=== PATIENT | female | born 1960 | race Caucasian/White ===

== ENCOUNTER 2017-11-12 10:18 | Inpatient (IN) | payer OTHER ==
[2017-11-12] MEDS ORDERED: Ondansetron ODT 4 MG TAB PO PRN (11:43)
[2017-11-12] MEDS ORDERED: Senokot 8.6 MG TAB PO PRN (11:43)
--- NOTE | 2017-11-12 12:15 | PDOC.FPRHP ---
- History of Present Illness Chief Complaint: fatigue, weight loss History of Present Illness: 57 yo female with pmhx of GERD and anemia presents with progressive shortness of breath, 40 pound weight loss, and fatigue. She states that over the past year she has felt run down and has noticed that she has become more and more tired as well as shortness of breath with activities. She notes that she thought she was just depressed and stressed because one year ago yesterday she lost her to stage 4 lung cancer with shahab to his brain. She states that she also has pain in her mouth. It feels like burning on her tongue and cheeks. She thinks she has lesions/sores in her mouth and has had these sx for months. It hurts to swallow food. It is painful and overall difficult (sticking ) to swallow solids especially but lately she has had difficulty with liquids as well. She was seen by Dr. Currie on Saturday who ordered a cbc, which showed a hb of 6.0, which was rechecked this morning and is now 5.8. She also ordered serum iron level which was low and vit b12 and folate which were both elevated. 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 She was directly admitted to [facility] after her repeat CBC showed a level of 5.8. She denies bloody stools. She endorses a chronic hx of constipation, denies n/v/d. Endorses a hx of esophageal strictures, gastric bypass surgery, and burning in her esophagus especially at night. She has a 20 pack year smoking hx, family hx of cardiac disease in her father, CML in her brother, and HCC in her mom. - Allergies/Adverse Reactions Allergies Allergy/AdvReac Type Severity Reaction Status Date / Time Tetracyclines Allergy Verified 11/12/17 11:16 - Home Medications Medication Instructions Recorded Confirmed Type Pantoprazole Sodium 40 mg PO DAILY 11/12/17 11/12/17 History Triamcinolone Acetonide 1 applic PO Q6HR 11/12/17 11/12/17 History [Triamcinolone Acet 0.1% Dental Paste] Comments: Pantoprazole 40mg daily Triamcinolone paste oral q6hrs - History PMHx:GERD, PTSD, Anemia, Hx of nephrolithiasis, Lupus? (non on medications) PSHx: Gastric bypass surgery, bladder surgery, cholecystectomy, appendectomy, hysterectomy, orthoscopic knee surgery, tonsillectomy FHx:Father-ID in 50s, cirrhosis, Mother-HCC @ 51 yrs old, Brother CML @ 45 years old Social:20 pack year smoking hx, denies alcohol use or drug use - Review of Systems General: reports: weight/appetite/sleep changes (40 lbs weight loss over passed year), fatigue, other (chronic stress, decreased PO intake, sores in mouth). denies: fever/chills Eyes: denies: eye pain, vision changes ENT: reports: other (dysphagia and odynophagia with solids initially, lately with liquids as well). denies: nasal congestion, rhinorrhea Respiratory: reports: shortness of breath, exercise intolerance. denies: cough , congestion Cardiovascular: denies: chest pain, palpitation, edema, paroxysmal nocturnal dyspnea, orthopnea Gastrointestinal: reports: constipation. denies: nausea, vomiting, diarrhea, abdominal pain Genitourinary: denies: incontinence, dysuria Skin: denies: rashes, lesions Musculoskeletal: denies: pain, tenderness, stiffness Neurological: denies: numbness, syncope Psychological: denies: anxiety, depression - Vital signs BP: 140/78 HR: 88 RR: 16 Tmax: 98.9 Pox: 100% on RA Wt: 54kg - Physical Exam Constitutional: NAD, awake, alert and oriented, well developed HEENT: normocephalic and atraumatic, PERRLA, EOMI, no scleral icterus, TM's clear and intact, grossly normal hearing, normal nasal mucosa, MMM, oropharynx clear (no signs of lesions), other (conjunctival pallor) Neck: supple, trachea midline, no LAD, no JVD, no thyromegaly Chest: no-tender to palpation Heart: RRR, normal S1/S2, no murmurs/rubs/gallops, no edema Lungs: CTAB, no respiratory distress, good air movement, no wheezing, no retractions Abdomen: soft, non-tender, bowel sounds present Musculoskeletal: normal structure, normal tone Neurological: no focal deficit, normal sensation Skin: no rash/lesions, good turgor, capillary refill <2 seconds, no jaundice Heme/Lymphatic: no unusual bruising or bleeding, no purpura, no petechia Psychiatric: normal mood and affect, intact recent and remote memory FMR H&P: Results - Labs Result Diagrams: 11/13/17 04:22 11/13/17 04:22 FMR H&P: A/P - Problem List (1) Symptomatic anemia Current Visit: Yes Status: Acute Code(s): D64.9 - ANEMIA, UNSPECIFIED (2) Dysphagia Current Visit: Yes Status: Acute Code(s): R13.10 - DYSPHAGIA, UNSPECIFIED (3) ELI (acute kidney injury) Current Visit: Yes Status: Acute Code(s): N17.9 - ACUTE KIDNEY FAILURE, UNSPECIFIED (4) Odynophagia Current Visit: Yes Status: Acute Code(s): R13.10 - DYSPHAGIA, UNSPECIFIED (5) History of esophageal stricture Current Visit: Yes Status: Acute Code(s): Z87.19 - PERSONAL HISTORY OF OTHER DISEASES OF THE DIGESTIVE SYSTEM (6) GERD (gastroesophageal reflux disease) Current Visit: Yes Status: Acute Code(s): K21.9 - GASTRO-ESOPHAGEAL REFLUX DISEASE WITHOUT ESOPHAGITIS (7) Hx of gastric bypass Current Visit: Yes Status: Acute Code(s): Z98.84 - BARIATRIC SURGERY STATUS (8) Family history of heart attack Current Visit: Yes Status: Acute Code(s): Z82.49 - FAMILY HX OF ISCHEM HEART DIS AND OTH DIS OF THE [facility] SYS (9) Tobacco abuse Current Visit: Yes Status: Acute Code(s): Z72.0 - TOBACCO USE - Plan 57 yo f with pmhx of anemia presents with fatigue, 40 pound weight loss, dizziness, sob, dysphagia, and odynophagia with solids, and now liquids, found to have a hb of 5.8 admitted for symptomatic anemia. 1.)Symptomatic anemia- -Pt is symptomatic from her anemie with dizziness and shortness of breath. States she has iron deficient anemia, not taking iron as it makes her sick. She also has a hx of gastric bypass surgery making her at risk for poor absorption. -She was admitted to inpatient tele. Type and cross was ordered and pt was ordered 2U prbcs. We will recheck with an H/H this evening at 1999. We plan to recheck cbc and bmp in the am as well. Serum iron was ordered outpatient and was low. We ordered a TIBC and ferritin as well. Vit B12 and folate were ordered outpatient and were elevated. RBCfolate was ordered here. Pt may need an iron transfusion. Check FOBT. 2.)Dysphagia and Odynophagia- -Pt states she has a hx of difficulty swallowing with solids that is progressive and now liquids. She has weight loss, 20 pack year smoking hx, and longstanding hx of uncontrolled and unmedicated GERD. She states that she also has a known hx of esophageal strictures. GI was consulted and we will follow up on their recommendations. Pt will likely need an EGD and may need a colonoscopy. However, no complaint at this time of bloody stools or hematemesis. She actually complains of constipation in stead. 3.)ELI- Pt had a normal Cr and BUN on labs done on Saturday and presents with an elevated BUN an Cr. Ratio>15. Will start NS @ 100ml/hr for her and Recheck BMP in am. 3.)GERD- -Pt has red flag sx of wt loss, iron deficient anemia, dysphagia, odynophagia. She has risk factors for Barretts esophagus being >50 years, white, nighttime refulx, and tobacco abuse. GI consulted and likely EGD in the am if H/H stable. Will make pt NPO at midnight. Pantoprazole 40mg daily. 4.)Constipation-will start doc and senna for pt. 5.)Stomatitis- Pt complains of oral ulcers and burning with eating. No obvious ulcers seen. HSV -1 and HSV-2 antibodies positive. No signs of herpetic lesions. Will continue triamcinolone oral paste. 6.)Hx of esophageal strictures- -GI consult, follow-up on recs 7.)Hx of tobacco abuse-nicotine patch, [place] on cessation 8.)Lupus-pt reports hx but is not on any medications. FMR H&P: Upper Level - Pertinent history 57 year old white female presents for fatigue and dyspnea. She reports this has been ongoing for about a year. She has also had exertional dyspnea, odynophagia, and mouth sores that have been present for a while. She also reports 40 lb weight loss in the last year. She also has reports frequent congestion. She reported these concerns to her PCP (whom she had not seen since January) on Saturday. Her hemoglobin Saturday morning. PM Patient is a poor historian. Reports longstanding history of anemia, multiple esophageal strictures, GERD, and having been told she had lupus once PSH Gastric bypass, EGD with stricture dilation, tonsillectomy, appendectomy, cholecystectomy, hysterectomy, knee arthroscopy - Pertinent findings Vital Signs Temp 98.9 RR 16 HR 88 BP 140/78 O2 sats 100% on Room Air Weight 54 kg Physical Exam General: NAD. AAOx4. Eyes: EOMI, PERRL, nonicteric. Conjunctiva pale ENT: MMM, oropharynx clear. Mucosa pale CV: RRR, no m/r/g. Pulses full and equal in all 4 extremities Resp: CTAB. No wheezing, rales, or rhonchi. Nonlabored NT: NT, ND, no guarding or rebound Ext: No clubbing, cyanosis, or edema. Equal movements bilaterally Skin: No rash or ulcer. No palpable lesions Neuro: CN II-XII intact. No focal deficits Psych: Mood and affect appropriate. Judgment and insight intact - Plan Date/Time: 11/12/17 1215 IFrankie DO, have evaluated this patient and agree with findings/plan as outlined by pharmacy intern resident. Pertinent changes/additions are listed here. A/P 57 yo white female presents: 1) Symptomatic microcytic anemia - Admit to telemetry. Check FOBT. Consult GI. Repeat CBC in the morning. B12, iron studies checked outpatient. Check folate. Transfuse 2 units 2) Unexplained weight loss - 40 lbs in the last year. Consult GI 3) Questionable history of lupus - Likely appropriate for outpatient workup 4) Constipation - Colace, Senokot 5) Code Status - Full Attending Addendum - Attending Addendum Date/Time: 11/12/17 1133 I personally evaluated the patient and discussed the management with Dr. Dangelo. I agree with the History, Examination, Assessment and Plan documented above with any addition or exceptions noted below. The patient is direct admitted for symptomatic anemia, eli, stomatitis, dysphagia. She will get 2 units prbc's and trend hb. Consult GI for EGD/ Colonoscopy. Start IV fluids.
[2017-11-12] MEDS: Sodium Chloride 0.9% 1,000 ML IV SCH ×2 (12:46→21:54)
[2017-11-12] MEDS: Nicotine 14 MG PATCH TD SCH (12:46)
[2017-11-12 13:01] LABS: Magnesium 2.2 mg/dL (1.6-2.6); Phosphorus 4.1 mg/dL (2.3-4.7)
[2017-11-12 13:03] LABS: ALT (SGPT) 14 U/L (8-55); AST (SGOT) 19 U/L (5-34); Albumin 4.1 g/dL (3.5-5.0); Alkaline Phosphatase 101 U/L (40-150); Anion Gap 12 mmol/L (10-20); BUN (Urea Nitrogen) 22 mg/dL (9.8-20.1); Bilirubin, Total 0.7 mg/dL (0.2-1.2); Calc. Creatinine Clearance 47 mL/min (70-130); Carbon Dioxide 23 mmol/L (22-29); Chloride 108 mmol/L (98-107); Estimated GFR-MDRD 49; Globulin 2.2 g/dL (2.4-3.5); Glucose 109 mg/dL (70-105); Potassium 3.8 mmol/L (3.5-5.1); Protein, Total 6.3 g/dL (6.0-8.3); Sodium 139 mmol/L (136-145)
--- NOTE | 2017-11-12 13:42 | RAD ---
PA AND LATERAL VIEWS CHEST: HISTORY: Shortness of breath. FINDINGS: Comparison is made to exam of 07/29/15. The heart size is normal. The aorta is tortuous. The lungs are expanded without focal areas of cons olidation, pneumothorax, pneumothorax, or pleural effusions. There are postop changes in the left ab domen. There are mild degenerative changes in the spine. IMPRESSION: No acute process. POS: [facility]
[2017-11-12 13:59] LABS: Ferritin Less than 2.00 ng/mL (10-291); Thyroid Stimulating Hormone 0.4873 uIU/mL (0.35-4.94)
[2017-11-12 14:01] LABS: HIV (1/2) Antibody/Antigen Non-Reactive (NonReactive); HIV 1/2 INDEX 0.13 S/CO (<1.00)
[2017-11-12 14:16] LABS: Reticulocyte Count 1.6 % (0.5-1.5)
[2017-11-12 14:18] LABS: Hemoglobin 5.6 g/dL (12.0-16.0); Mean Corpuscular HGB CONC 29.3 g/dL (32.0-36.0); Mean Corpuscular Hemoglobin 16.1 pg (27.0-31.0); Mean Platelet Volume 4.9 fL (7.4-10.4); Platelet Count 294 thou/uL (130-400); RBC Distribution Width 20.4 % (11.5-14.5); Red Blood Cell (RBC) Count 3.48 mill/uL (4.20-5.40)
[2017-11-12 14:42] LABS: Anisocytosis MODERATE=16-30 cells (100X) (0-5/hpf); Band 1 % (5-11); Elliptocytes SLIGHT = 2-5 cells (100X) (0-1/hpf); Hypochromia MODERATE=16-30 cells (100X) (0-5/hpf); Large Platelets SLIGHT; Lymphocytes 32 % (21-51); MDiff Complete? YES; Microcytosis MODERATE=15-30 cells (100X) (0-5/hpf); Monocytes 2 % (0-10); Neutrophil 65 % (42-75); Ovalocytes SLIGHT = 2-5 cells (100X) (0-1/hpf); PLT Morphology Comment Appears Adequate; Poikilocytosis SLIGHT = 6-15 cells (100X) (0-5/hpf); Polychromasia MODERATE = 3-4 cells (100X) (0-2/hpf); Reflex for Review?? YES; Schistocytes SLIGHT = 2-5 cells (100X) (0-1/hpf); Target Cells SLIGHT = 2-5 cells (100X) (0-1/hpf); Tear Drops SLIGHT = 2-5 cells (100X) (0-1/hpf)
[2017-11-12 16:07] LABS: Amphetamine Detected (NotDetected); Barbiturates Screen Not Detected (NotDetected); Benzodiazepine Screen Not Detected (NotDetected); Cocaine Metabolite Screen Not Detected (NotDetected); Medtox Control Line Valid? VALID (VALID); Medtox Reader # READER 4; Methadone Not Detected (NotDetected); Methamphetamine Detected (NotDetected); Opiate Screen Not Detected (NotDetected); Oxycodone Screen Not Detected (NotDetected); Phencyclidine (PCP) Not Detected (NotDetected); THC/Cannabinoid Screen Not Detected (NotDetected); Tricyclic Screen Not Detected (NotDetected)
[2017-11-12] MEDS ORDERED: GoLYTELY 4,000 ml Bottle PO SCH (16:30)
--- NOTE | 2017-11-12 17:26 | CON ---
DATE OF CONSULTATION: 11/12/2017 GI INPATIENT CONSULTATION NOTE REQUESTING PHYSICIAN: Sandra Dangelo MD REASON FOR CONSULTATION: Iron deficiency anemia and dysphagia. HISTORY OF PRESENT ILLNESS: Wild Serrano is a 57-year-old woman who was admitted to the [facility] today with severe symptomatic iron deficiency anemia. She has a past medical history of Naheed-en- Y gastric bypass surgery about 12 years ago and relates that she had severe reflux and esophageal str icture dilation in the immediate postoperative period, but had done well since then until the past ye ar. She also carries a diagnosis of lupus, which is currently untreated. She saw my GI colleague, Kika Colon in the distant past back in 2001 and had an EGD at that time showing nonerosive gastrit is and duodenitis and a colonoscopy which was normal. This was before her Naheed-en-Y gastric bypass s urgery. She says she takes a multivitamin, but does not take any iron supplementation. She relates that for about the past year, she has had a slow decline with progressive shortness of breath and fat igue. She had a 40-pound weight loss. She has been depressed over the past year since the unfortuna te of her . She has also noticed intermittent sores in her mouth and also sensation of dysphagia and odynophagia feeling as if food hangs up in the bottom of the chest, particularly solid foods. She reports that she has been getting headaches and so she has been starting to take a lot of Advil. She also continues to smoke. There has been no melena or hematochezia, no hematemesis, no o vert bleeding from anywhere. Her bowel habits have tended toward constipation a bit recently. She t akes no medications aside from oral Protonix, which she was just started on few weeks ago. She was s een by her primary care physician and was found to be severely anemic and so was sent to the hospital for transfusion and further evaluation. Her hemoglobin is 5.6 with an MCV of only 55. Her ferritin is undetectable at less than 2. She is currently getting 2 units RBC transfusion. She says her sym ptoms are unchanged. REVIEW OF SYSTEMS: Full review of systems including constitutional, head, eyes, ears, nose, throat, GI, , cardiovascular, respiratory, musculoskeletal, and neurologic systems is negative except as no vernon in the HPI. PAST MEDICAL HISTORY: 1. Naheed-en-Y gastric bypass 12 years ago. 2. Esophageal stricture dilated 12 years ago. 3. Normal colonoscopy 2001. 4. Lupus. 5. Nephrolithiasis. 6. Post-traumatic stress disorder. 7. Gastroesophageal reflux disease. 8. Cholecystectomy. 9. Appendectomy. 10. Hysterectomy. ALLERGIES: TETRACYCLINE. OUTPATIENT MEDICATION: Protonix 40 mg daily. Patient says she started this only a few weeks ago. SOCIAL HISTORY: She has a [id number] history of smoking and continues to smoke. No alcohol or olayinka g abuse. FAMILY HISTORY: Her mother had HCC. Her brother had CML. PHYSICAL EXAMINATION: VITAL SIGNS: Temperature 98.1, pulse 87, blood pressure 141/94, 100% oxygen saturation on room air. GENERAL: A 57-year-old woman sitting up in bed comfortably in no distress. MENTAL: Alert and fully oriented, pleasant, conversational. SKIN: She is pale, no jaundice, no rashes were palpable. EYES: No scleral icterus. Extraocular movements intact. ENT: Mucous membranes moist, no oral lesions. LYMPH: No submandibular or supraclavicular lymphadenopathy. THYROID: Nontender to palpation. HEART: Regular rate and rhythm. LUNGS: Clear to auscultation bilaterally. ABDOMEN: Flat, bowel sounds present, soft, some tenderness to palpation in the epigastrium, but no g uarding or rebound tenderness. EXTREMITIES: No peripheral edema. VESSELS: Radial pulses 2+ bilaterally. NEUROLOGICAL: Cranial nerves II-XII intact bilaterally. No focal deficits. LABORATORY STUDIES: Hemoglobin 5.6, MCV 55, WBC 7.0, platelets 294. Ferritin less than 2, TIBC 456. Vitamin B12 greater than 2000. Reticulocyte count 1.6. TSH 0.48. LFTs all normal. HIV negative. BUN 22, creatinine 1.14. IMAGING DATA: Chest x-ray shows no acute processes. ASSESSMENT AND PLAN: 1. Iron deficiency anemia, severe, symptomatic. 2. Dysphagia. 3. Abnormal weight loss. 4. History of Naheed-en-Y gastric bypass 12 years ago. 5. Chronic ongoing tobacco abuse. 6. Chronic nonsteroidal anti-inflammatory drug use. The patient's presentation seems most consisten t with upper GI mucosal pathology such as esophageal or gastric lesion, possibly anastomotic ulcer. She is certainly at risk for this given her chronic nonsteroidal anti-inflammatory drug use and her o ngoing tobacco abuse in the context of Naheed-en-Y gastric bypass. Given the severity of her anemia an d weight loss, consider lower GI occult bleeding lesion as well. I think the best course of action w ould be to prep her this evening for EGD and colonoscopy tomorrow. The patient is agreeable to this. She is currently getting RBC transfusion and is hemodynamically stable. Further recommendations fo llowing EGD and colonoscopy. Thank you for the consultation. Please call with questions or concerns.
[2017-11-12] MEDS ORDERED: Famotidine 20 MG TAB PO SCH (21:00)
[2017-11-12] MEDS: Docusate 100 MG CAP PO SCH (21:38)
[2017-11-12 23:04] LABS: Hemoglobin 7.7 g/dL (12.0-16.0); Mean Corpuscular HGB CONC 30.3 g/dL (32.0-36.0); Mean Corpuscular Hemoglobin 19.1 pg (27.0-31.0); Mean Corpuscular Volume 63.2 fl (81.0-99.0); Mean Platelet Volume 4.6 fL (7.4-10.4); Platelet Count 256 thou/uL (130-400); RBC Distribution Width 28.5 % (11.5-14.5); Red Blood Cell (RBC) Count 4.01 mill/uL (4.20-5.40); White Blood Cell (WBC) Count 5.6 thou/uL (4.8-10.8)
[2017-11-13 05:33] LABS: #Basophils 0.1 thou/uL (0.0-0.2); #Eosinphils 0.1 thou/uL (0.0-0.7); #Lymphocytes 2.2 thou/uL (1.20-3.40); #Monocytes 0.5 thou/uL (0.11-0.59); #Neutrophils 2.7 thou/uL (1.40-6.50); %Eosinophils 1.6 % (0.0-10.0); %Lymphocytes 39.3 % (21.0-51.0); %Monocytes 9.1 % (0.0-10.0); Mean Corpuscular HGB CONC 30.2 g/dL (32.0-36.0); Mean Platelet Volume 5.2 fL (7.4-10.4); Platelet Count 285 thou/uL (130-400); RBC Distribution Width 28.5 % (11.5-14.5); Red Blood Cell (RBC) Count 4.22 mill/uL (4.20-5.40); White Blood Cell (WBC) Count 5.5 thou/uL (4.8-10.8)
[2017-11-13 05:48] LABS: Anion Gap 12 mmol/L (10-20); BUN (Urea Nitrogen) 11 mg/dL (9.8-20.1); Calc. Creatinine Clearance 71 mL/min (70-130); Carbon Dioxide 25 mmol/L (22-29); Chloride 108 mmol/L (98-107); Estimated GFR-MDRD 79; Glucose 91 mg/dL (70-105); Potassium 3.8 mmol/L (3.5-5.1); Sodium 141 mmol/L (136-145)
[2017-11-13 07:58] VITALS: BMI 21.2
[2017-11-13] MEDS: Docusate 100 MG CAP PO SCH ×2 (08:29→20:23)
[2017-11-13] MEDS: Nicotine 14 MG PATCH TD SCH (11:47)
[2017-11-13] MEDS: Sodium Chloride 0.9% 1,000 ML IV SCH (11:47)
--- NOTE | 2017-11-13 11:54 | PDOC.FM ---
- Subjective Subjective: No acute events overnight. Denies use of meth despite +UDS. States her oral pain with swallowing is improved. - Objective MAR Reviewed: Yes Vital Signs & Weight: Vital Signs (12 hours) Temp Pulse Resp BP Pulse Ox 11/13/17 11:41 98.5 F 75 15 152/95 H 98 11/13/17 07:08 98.2 F 67 15 156/97 H 97 11/13/17 05:58 97.1 F L 72 18 164/97 H 97 Weight Admit Weight 54.159 kg Weight 56.245 kg I&O: 11/12/17 11/13/17 11/14/17 06:59 06:59 06:59 Intake Total 3500 Output Total 1100 Balance 2400 Result Diagrams: 11/13/17 04:22 11/13/17 04:22 <Sandra Dangelo - Last Filed: 11/13/17 11:54> - Objective Vital Signs & Weight: Vital Signs (12 hours) Temp Pulse Resp BP BP Pulse Ox 11/13/17 20:22 75 180/103 H 11/13/17 19:51 97.6 F 75 16 180/103 H 100 11/13/17 18:41 98.1 F 78 16 168/103 H 97 11/13/17 11:41 98.5 F 75 15 152/95 H 98 Weight Admit Weight 54.159 kg Weight 56.245 kg I&O: 11/12/17 11/13/17 11/14/17 06:59 06:59 06:59 Intake Total 3500 1560 Output Total 1100 1700 Balance 2400 -140 Result Diagrams: 11/13/17 04:22 11/13/17 04:22 <Sera Currie - Last Filed: 11/13/17 20:42> Phys Exam - Physical Examination Constitutional: NAD HEENT: PERRLA, moist MMs Respiratory: no wheezing, no rales, no rhonchi, clear to auscultation bilateral Cardiovascular: RRR, no significant murmur Gastrointestinal: soft, non-tender, no distention Musculoskeletal: no edema, pulses present Neurological: non-focal, normal sensation Psychiatric: normal affect, A&O x 3 Skin: no rash, normal turgor <Sandra Dangelo - Last Filed: 11/13/17 11:54> Dx/Plan (1) Symptomatic anemia Code(s): D64.9 - ANEMIA, UNSPECIFIED Status: Acute (2) Dysphagia Code(s): R13.10 - DYSPHAGIA, UNSPECIFIED Status: Acute (3) ELI (acute kidney injury) Code(s): N17.9 - ACUTE KIDNEY FAILURE, UNSPECIFIED Status: Acute (4) Odynophagia Code(s): R13.10 - DYSPHAGIA, UNSPECIFIED Status: Acute (5) History of esophageal stricture Code(s): Z87.19 - PERSONAL HISTORY OF OTHER DISEASES OF THE DIGESTIVE SYSTEM Status: Acute (6) GERD (gastroesophageal reflux disease) Code(s): K21.9 - GASTRO-ESOPHAGEAL REFLUX DISEASE WITHOUT ESOPHAGITIS Status: Acute (7) Hx of gastric bypass Code(s): Z98.84 - BARIATRIC SURGERY STATUS Status: Acute (8) Family history of heart attack Code(s): Z82.49 - FAMILY HX OF ISCHEM HEART DIS AND OTH DIS OF THE [facility] SYS Status: Acute (9) Tobacco abuse Code(s): Z72.0 - TOBACCO USE Status: Acute - Plan Plan: 57 yo f with pmhx of anemia presents with fatigue, 40 pound weight loss, dizziness, sob, dysphagia, and odynophagia with solids, and now liquids, found to have a hb of 5.8 admitted for symptomatic anemia. 1.)Symptomatic anemia- -Pt is symptomatic from her anemie with dizziness and shortness of breath. States she has iron deficient anemia, not taking iron as it makes her sick. She also has a hx of gastric bypass surgery making her at risk for poor absorption. -Repeat H/H was 7.7, and now 8.0 this morning. -Serum iron was ordered outpatient and was low. We ordered a TIBC and ferritin as well. -Vit B12 and folate were ordered outpatient and were elevated. RBCfolate was ordered here. -Pt may need an iron transfusion. -FOBT pending. -GI consult, who recommend EGD and Colonoscopy; pt was made NPO at midnight 2.)Dysphagia and Odynophagia- -Pt states she has a hx of difficulty swallowing with solids that is progressive and now liquids. -She has weight loss, 20 pack year smoking hx, and longstanding hx of uncontrolled and unmedicated GERD. -She states that she also has a known hx of esophageal strictures. -GI was consulted and recommend EGD and colonoscopy today. 3.)ELI- -Pt had a normal Cr and BUN on labs done on Saturday and presents with an elevated BUN an Cr. Ratio>15. Resolved this am. -Will dc NS today. 4.)GERD- -Pt has red flag sx of wt loss, iron deficient anemia, dysphagia, odynophagia. She has risk factors for Barretts esophagus being >50 years, white, nighttime refulx, and tobacco abuse. -GI consulted and EGD, colonoscopy today, made NPO at midnight, continue Pantoprazole 40mg daily. 5.)Constipation-will start doc and senna for pt. 6.)Stomatitis- Pt complains of oral ulcers and burning with eating. No obvious ulcers seen. HSV -1 and HSV-2 antibodies positive. No signs of herpetic lesions. Will continue triamcinolone oral paste. 7.)Hx of esophageal strictures- -GI consult, follow-up on recs 8.)Hx of tobacco abuse-nicotine patch, [place] on cessation 9.)Lupus-pt reports hx but is not on any medications. 10.) Meth abuse-denied use Dispo: pending results of EGD and colonoscopy. <Sandra Dangelo - Last Filed: 11/13/17 11:54> (1) Symptomatic anemia Code(s): D64.9 - ANEMIA, UNSPECIFIED Status: Acute (2) Dysphagia Code(s): R13.10 - DYSPHAGIA, UNSPECIFIED Status: Acute (3) ELI (acute kidney injury) Code(s): N17.9 - ACUTE KIDNEY FAILURE, UNSPECIFIED Status: Acute (4) Odynophagia Code(s): R13.10 - DYSPHAGIA, UNSPECIFIED Status: Acute (5) History of esophageal stricture Code(s): Z87.19 - PERSONAL HISTORY OF OTHER DISEASES OF THE DIGESTIVE SYSTEM Status: Acute (6) GERD (gastroesophageal reflux disease) Code(s): K21.9 - GASTRO-ESOPHAGEAL REFLUX DISEASE WITHOUT ESOPHAGITIS Status: Acute (7) Hx of gastric bypass Code(s): Z98.84 - BARIATRIC SURGERY STATUS Status: Acute (8) Family history of heart attack Code(s): Z82.49 - FAMILY HX OF ISCHEM HEART DIS AND OTH DIS OF THE [facility] SYS Status: Acute (9) Tobacco abuse Code(s): Z72.0 - TOBACCO USE Status: Acute <Sera uCrrie - Last Filed: 11/13/17 20:42> Attending Addendum - Attending Addendum Date/Time: 11/13/172040 I personally evaluated the patient and discussed the management with Dr. Dangelo. I agree with the History, Examination, Assessment and Plan documented above with any addition or exceptions noted below. The patient's hemoglobin is improved after transfusion with 2 units PRBC's. The patient will have egd and colonoscopy today. UDS positive for methamphetamines but she denies usage. <Sera Currie - Last Filed: 11/13/17 20:42>
[2017-11-13 14:23] LABS: Folate,Hemolysate 370.7 ng/mL (Not Estab.); Hematocrit 18.9 % (34.0-46.6); RBC Folate Test Component 1961 ng/mL (>498)
[2017-11-13] MEDS ORDERED: PROPOFOL 200 MG/20 ML VIAL ONE (14:49)
[2017-11-13] MEDS ORDERED: Promethazine HCl 25 MG/ML VIAL IM PRN (17:36)
[2017-11-13] MEDS ORDERED: Promethazine HCl 25 MG/ML VIAL SLOW IVP PRN (17:36)
[2017-11-13] MEDS ORDERED: Ondansetron HCl/PF 4 MG/2 ML Vial IVP PRN (17:36)
[2017-11-13] MEDS ORDERED: Labetalol HCl 100 MG/20 ML VIAL SLOW IVP PRN (19:05)
--- NOTE | 2017-11-13 19:12 | OP ---
PREOPERATIVE DIAGNOSIS: Iron deficiency anemia. PROCEDURE IN DETAIL: After informed consent was obtained, the patient was placed in the left lateral decubitus position. Anesthesia was administered per the Anesthesia Department. Forward-viewing end oscope was inserted into the esophagus under direct visualization with ease and passed to the jejunum with ease. The jejunum was normal. There was a previous gastric bypass and then the area of the an astomosis was a large ulcer. This ulcer was biopsied. No visible vessel or active bleeding was seen . Gastric pouch was otherwise normal. The esophagus showed grade C reflux esophagitis. ASSESSMENT: 1. Anastomotic ulcer -- status post biopsy. 2. Grade C reflux esophagitis. 3. Gastric bypass. RECOMMENDATIONS: 1. PPI. 2. Iron. 3. Proceed with colonoscopy. PROCEDURE: After informed consent was obtained, the patient was placed in the left lateral decubitus position. Anesthesia was administered per the Anesthesia Department. Forward-viewing endoscope was inserted into the rectum after perianal inspection and rectal exam were normal, passed to the cecum with ease. The cecum, ileocecal valve, and appendiceal orifice were normal. The prep was excellent. The ascending, transverse, descending, sigmoid, and rectum were normal. Retroflexion in the rectum was normal. ASSESSMENT: Normal colonoscopy. RECOMMENDATIONS: Repeat colonoscopy in 10 years.
[2017-11-14] MEDS: Sodium Chloride 0.9% 1,000 ML IV SCH ×3 (04:09→22:24)
[2017-11-14 04:45] LABS: Anion Gap 10 mmol/L (10-20); BUN (Urea Nitrogen) 9 mg/dL (9.8-20.1); Calc. Creatinine Clearance 72 mL/min (70-130); Calcium 8.9 mg/dL (7.8-10.44); Carbon Dioxide 25 mmol/L (22-29); Chloride 109 mmol/L (98-107); Estimated GFR-MDRD 78; Glucose 85 mg/dL (70-105); Potassium 3.9 mmol/L (3.5-5.1); Sodium 140 mmol/L (136-145)
[2017-11-14 05:21] LABS: #Eosinphils 0.1 thou/uL (0.0-0.7); #Lymphocytes 2.1 thou/uL (1.20-3.40); #Monocytes 0.6 thou/uL (0.11-0.59); #Neutrophils 4.2 thou/uL (1.40-6.50); %Basophils 0.7 % (0.0-1.0); %Eosinophils 1.5 % (0.0-10.0); %Lymphocytes 29.6 % (21.0-51.0); %Neutrophils 60.4 % (42.0-75.0); Anisocytosis MODERATE=16-30 cells (100X) (0-5/hpf); Elliptocytes SLIGHT = 2-5 cells (100X) (0-1/hpf); Hemoglobin 7.8 g/dL (12.0-16.0); MDiff Complete? YES; Mean Corpuscular HGB CONC 30.5 g/dL (32.0-36.0); Mean Corpuscular Hemoglobin 19.2 pg (27.0-31.0); Mean Corpuscular Volume 62.9 fl (81.0-99.0); Platelet Count 263 thou/uL (130-400); Poikilocytosis SLIGHT = 6-15 cells (100X) (0-5/hpf); RBC Distribution Width 28.8 % (11.5-14.5); Red Blood Cell (RBC) Count 4.05 mill/uL (4.20-5.40)
--- NOTE | 2017-11-14 06:55 | PDOC.FM ---
- Subjective Subjective: No acute events overnight. Denies complaints this morning. States that Gi took an esophageal ulcer. Colonoscopy was normal. - Objective MAR Reviewed: Yes Vital Signs & Weight: Vital Signs (12 hours) Temp Pulse Resp BP BP BP Pulse Ox 11/14/17 04:00 98.7 F 77 14 163/95 H 98 11/14/17 00:00 98.4 F 75 15 162/90 H 98 11/13/17 20:22 75 180/103 H 11/13/17 20:08 97.6 F 75 16 100 11/13/17 19:51 97.6 F 75 16 180/103 H 100 Weight Admit Weight 54.159 kg Weight 56.699 kg I&O: 11/12/17 11/13/17 11/14/17 06:59 06:59 06:59 Intake Total 3500 1800 Output Total 1100 1700 Balance 2400 100 Result Diagrams: 11/14/17 03:29 11/14/17 03:29 <Sandra Dangelo - Last Filed: 11/14/17 09:25> - Objective Vital Signs & Weight: Vital Signs (12 hours) Temp Pulse Resp BP Pulse Ox 11/14/17 19:23 98.1 F 83 14 171/92 H 97 Weight Admit Weight 54.159 kg Weight 56.699 kg I&O: 11/13/17 11/14/17 11/15/17 06:59 06:59 06:59 Intake Total 3500 1800 Output Total 1100 1700 Balance 2400 100 Result Diagrams: 11/14/17 03:29 11/14/17 03:29 <Sera Currie - Last Filed: 11/14/17 19:41> Phys Exam - Physical Examination Constitutional: NAD HEENT: PERRLA, moist MMs Neck: no nodes, no JVD Respiratory: no wheezing, no rales, clear to auscultation bilateral Cardiovascular: RRR, no significant murmur Gastrointestinal: soft, non-tender, no distention Musculoskeletal: no edema, pulses present Neurological: non-focal, normal sensation Psychiatric: normal affect, A&O x 3 Skin: no rash, normal turgor <Sandra Dangelo - Last Filed: 11/14/17 09:25> Dx/Plan (1) Symptomatic anemia Code(s): D64.9 - ANEMIA, UNSPECIFIED Status: Acute (2) Dysphagia Code(s): R13.10 - DYSPHAGIA, UNSPECIFIED Status: Acute (3) ELI (acute kidney injury) Code(s): N17.9 - ACUTE KIDNEY FAILURE, UNSPECIFIED Status: Acute (4) Odynophagia Code(s): R13.10 - DYSPHAGIA, UNSPECIFIED Status: Acute (5) History of esophageal stricture Code(s): Z87.19 - PERSONAL HISTORY OF OTHER DISEASES OF THE DIGESTIVE SYSTEM Status: Acute (6) GERD (gastroesophageal reflux disease) Code(s): K21.9 - GASTRO-ESOPHAGEAL REFLUX DISEASE WITHOUT ESOPHAGITIS Status: Acute (7) Hx of gastric bypass Code(s): Z98.84 - BARIATRIC SURGERY STATUS Status: Acute (8) Family history of heart attack Code(s): Z82.49 - FAMILY HX OF ISCHEM HEART DIS AND OTH DIS OF THE CIRC SYS Status: Acute (9) Tobacco abuse Code(s): Z72.0 - TOBACCO USE Status: Acute - Plan Plan: 57 yo f with pmhx of anemia presents with fatigue, 40 pound weight loss, dizziness, sob, dysphagia, and odynophagia with solids, and now liquids, found to have a hb of 5.8 admitted for symptomatic anemia. 1.)Symptomatic anemia- -Pt is symptomatic from her anemie with dizziness and shortness of breath. States she has iron deficient anemia, not taking iron as it makes her sick. She also has a hx of gastric bypass surgery making her at risk for poor absorption. -Repeat H/H was 7.7, and now 8.0 this morning. -Serum iron was ordered outpatient and was low. We ordered a TIBC and ferritin as well. -Vit B12 and folate were ordered outpatient and were elevated. RBCfolate was ordered here. -Pt may need an iron transfusion. -FOBT pending. -GI consult, performed EGD and colon. ysterday, colonoscopy wnl. EGD-found esophagitis with an ulcer and took a biopsy. Results pending. -Consider iron tranfusion today. 2.)Dysphagia and Odynophagia- -Pt states she has a hx of difficulty swallowing with solids that is progressive and now liquids. -She has weight loss, 20 pack year smoking hx, and longstanding hx of uncontrolled and unmedicated GERD. -She states that she also has a known hx of esophageal strictures. -EGD-took biopsy of esophageal ulcer 3.)ELI- -Pt had a normal Cr and BUN on labs done on Saturday and presents with an elevated BUN an Cr. Ratio>15. Resolved this am. -Will dc NS today. 4.)GERD- -Pt has red flag sx of wt loss, iron deficient anemia, dysphagia, odynophagia. She has risk factors for Barretts esophagus being >50 years, white, nighttime refulx, and tobacco abuse. -continue Pantoprazole 40mg daily. 5.)Constipation-will start doc and senna for pt. 6.)Stomatitis- Pt complains of oral ulcers and burning with eating. No obvious ulcers seen. HSV -1 and HSV-2 antibodies positive. No signs of herpetic lesions. Will continue triamcinolone oral paste. 7.)Hx of esophageal strictures- -GI consult, follow-up on recs 8.)Hx of tobacco abuse-nicotine patch, [place] on cessation 9.)Lupus-pt reports hx but is not on any medications. 10.) Meth abuse-denied use Dispo: pending results of EGD and colonoscopy. <Sandra Dangelo - Last Filed: 11/14/17 09:25> (1) Symptomatic anemia Code(s): D64.9 - ANEMIA, UNSPECIFIED Status: Acute (2) Dysphagia Code(s): R13.10 - DYSPHAGIA, UNSPECIFIED Status: Acute (3) ELI (acute kidney injury) Code(s): N17.9 - ACUTE KIDNEY FAILURE, UNSPECIFIED Status: Acute (4) Odynophagia Code(s): R13.10 - DYSPHAGIA, UNSPECIFIED Status: Acute (5) History of esophageal stricture Code(s): Z87.19 - PERSONAL HISTORY OF OTHER DISEASES OF THE DIGESTIVE SYSTEM Status: Acute (6) GERD (gastroesophageal reflux disease) Code(s): K21.9 - GASTRO-ESOPHAGEAL REFLUX DISEASE WITHOUT ESOPHAGITIS Status: Acute (7) Hx of gastric bypass Code(s): Z98.84 - BARIATRIC SURGERY STATUS Status: Acute (8) Family history of heart attack Code(s): Z82.49 - FAMILY HX OF ISCHEM HEART DIS AND OTH DIS OF THE CIRC SYS Status: Acute (9) Tobacco abuse Code(s): Z72.0 - TOBACCO USE Status: Acute <Sera Currie - Last Filed: 11/14/17 19:41> Attending Addendum - Attending Addendum Date/Time: 11/14/171939 I personally evaluated the patient and discussed the management with Dr. Dangelo. I agree with the History, Examination, Assessment and Plan documented above with any addition or exceptions noted below. The patient's hemoglobin is stable. Waiting on path results from egd biopsy. Continue PPI. The patient will be given an iron infusion because she is unable to tolerate PO iron. Will try to get pt to eat today. <Sera Currie - Last Filed: 11/14/17 19:41>
[2017-11-14] MEDS: Ferrous Sulfate 325 MG TAB PO SCH ×2 (09:46→19:05)
[2017-11-14] MEDS: Docusate 100 MG CAP PO SCH ×2 (09:48→22:22)
[2017-11-14] MEDS ORDERED: Sodium Ferric Gluconate 250 MG in Sodium Chloride 0.9% 100 ML IVPB SCH (12:15)
[2017-11-14] MEDS: Nicotine 14 MG PATCH TD SCH (13:01)
[2017-11-15 05:21] LABS: Anion Gap 9 mmol/L (10-20); BUN (Urea Nitrogen) 8 mg/dL (9.8-20.1); Calc. Creatinine Clearance 75 mL/min (70-130); Calcium 8.9 mg/dL (7.8-10.44); Carbon Dioxide 26 mmol/L (22-29); Chloride 109 mmol/L (98-107); Estimated GFR-MDRD 80; Glucose 94 mg/dL (70-105); Potassium 4.1 mmol/L (3.5-5.1); Sodium 140 mmol/L (136-145)
[2017-11-15 05:45] LABS: #Basophils 0.1 thou/uL (0.0-0.2); #Eosinphils 0.1 thou/uL (0.0-0.7); #Lymphocytes 2.1 thou/uL (1.20-3.40); #Monocytes 0.6 thou/uL (0.11-0.59); #Neutrophils 3.8 thou/uL (1.40-6.50); %Basophils 0.8 % (0.0-1.0); %Eosinophils 1.5 % (0.0-10.0); %Lymphocytes 31.4 % (21.0-51.0); %Monocytes 9.3 % (0.0-10.0); Hemoglobin 8.1 g/dL (12.0-16.0); Mean Corpuscular HGB CONC 30.1 g/dL (32.0-36.0); Mean Corpuscular Hemoglobin 19.3 pg (27.0-31.0); Mean Corpuscular Volume 64.3 fl (81.0-99.0); Mean Platelet Volume 5.1 fL (7.4-10.4); Platelet Count 262 thou/uL (130-400); RBC Distribution Width 29.2 % (11.5-14.5); Red Blood Cell (RBC) Count 4.17 mill/uL (4.20-5.40); White Blood Cell (WBC) Count 6.7 thou/uL (4.8-10.8)
[2017-11-15 05:46] LABS: Anisocytosis MODERATE=16-30 cells (100X) (0-5/hpf); Elliptocytes SLIGHT = 2-5 cells (100X) (0-1/hpf); Hypochromia MODERATE=16-30 cells (100X) (0-5/hpf); MDiff Complete? YES; Microcytosis MODERATE=15-30 cells (100X) (0-5/hpf); PLT Morphology Comment Appears Adequate; Tear Drops SLIGHT = 2-5 cells (100X) (0-1/hpf)
--- NOTE | 2017-11-15 06:57 | PDOC.FM ---
- Subjective Subjective: Pt says after her iron infusion yesterday she became nauseous and vomited once. She then ate dinner and tolerated it okay. She denies nausea and vomiting this am. Tolerating breakfast when I saw her. - Objective MAR Reviewed: Yes Vital Signs & Weight: Vital Signs (12 hours) Temp Pulse Resp BP BP Pulse Ox 11/15/17 03:40 99.0 F 93 18 158/99 H 97 11/14/17 20:11 98.1 F 83 14 83 L 11/14/17 19:23 98.1 F 83 14 171/92 H 97 Weight Admit Weight 54.159 kg Weight 56.064 kg I&O: 11/13/17 11/14/17 11/15/17 06:59 06:59 06:59 Intake Total 3500 1800 1330 Output Total 1100 1700 Balance 2400 100 1330 Result Diagrams: 11/15/17 04:30 11/15/17 04:30 <Sandra Dangelo - Last Filed: 11/15/17 09:03> - Objective Vital Signs & Weight: Vital Signs (12 hours) Temp Pulse Resp BP BP Pulse Ox 11/15/17 08:37 96.1 F L 72 16 161/94 H 98 11/15/17 08:19 161/94 H 11/15/17 08:00 96.1 F L 72 16 11/15/17 03:40 99.0 F 93 18 158/99 H 97 Weight Admit Weight 54.159 kg Weight 56.064 kg I&O: 11/14/17 11/15/17 11/16/17 06:59 06:59 06:59 Intake Total 1800 1330 Output Total 1700 Balance 100 1330 Result Diagrams: 11/15/17 04:30 11/15/17 04:30 <Sera Currie - Last Filed: 11/15/17 12:45> Phys Exam - Physical Examination Constitutional: NAD HEENT: PERRLA, moist MMs Respiratory: no wheezing, no rales, clear to auscultation bilateral Cardiovascular: RRR, no significant murmur Gastrointestinal: soft, non-tender, no distention, positive bowel sounds Musculoskeletal: no edema, pulses present Neurological: non-focal, normal sensation Psychiatric: normal affect, A&O x 3 Skin: no rash <Sandra Dangelo - Last Filed: 11/15/17 09:03> Dx/Plan (1) Symptomatic anemia Code(s): D64.9 - ANEMIA, UNSPECIFIED Status: Acute (2) Dysphagia Code(s): R13.10 - DYSPHAGIA, UNSPECIFIED Status: Acute (3) ELI (acute kidney injury) Code(s): N17.9 - ACUTE KIDNEY FAILURE, UNSPECIFIED Status: Acute (4) Odynophagia Code(s): R13.10 - DYSPHAGIA, UNSPECIFIED Status: Acute (5) History of esophageal stricture Code(s): Z87.19 - PERSONAL HISTORY OF OTHER DISEASES OF THE DIGESTIVE SYSTEM Status: Acute (6) GERD (gastroesophageal reflux disease) Code(s): K21.9 - GASTRO-ESOPHAGEAL REFLUX DISEASE WITHOUT ESOPHAGITIS Status: Acute (7) Hx of gastric bypass Code(s): Z98.84 - BARIATRIC SURGERY STATUS Status: Acute (8) Family history of heart attack Code(s): Z82.49 - FAMILY HX OF ISCHEM HEART DIS AND OTH DIS OF THE CIRC SYS Status: Acute (9) Tobacco abuse Code(s): Z72.0 - TOBACCO USE Status: Acute - Plan Plan: 57 yo f with pmhx of anemia presents with fatigue, 40 pound weight loss, dizziness, sob, dysphagia, and odynophagia with solids, and now liquids, found to have a hb of 5.8 admitted for symptomatic anemia. 1.)Symptomatic anemia- -Pt is symptomatic from her anemie with dizziness and shortness of breath. States she has iron deficient anemia, not taking iron as it makes her sick. She also has a hx of gastric bypass surgery making her at risk for poor absorption. -Repeat H/H stable at ~8.0 -Serum iron was ordered outpatient and was low. We ordered a TIBC and ferritin as well. Retic count high. -Vit B12 and folate were ordered outpatient and were elevated. RBCfolate was ordered here. -Pt may need an iron transfusion. -FOBT pending. -GI consult, performed EGD and colon. ysterday, colonoscopy wnl. EGD-found esophagitis with an ulcer and took a biopsy. Results pending. -s/p iron infusion yesterday -okay for dc today 2.)Dysphagia and Odynophagia- -Pt states she has a hx of difficulty swallowing with solids that is progressive and now liquids. -She has weight loss, 20 pack year smoking hx, and longstanding hx of uncontrolled and unmedicated GERD. -She states that she also has a known hx of esophageal strictures. -EGD-took biopsy of esophageal ulcer 3.)ELI- -Pt had a normal Cr and BUN on labs done on Saturday and presents with an elevated BUN an Cr. Ratio>15. Resolved this am. -Will dc NS today. 4.)GERD- -Pt has red flag sx of wt loss, iron deficient anemia, dysphagia, odynophagia. She has risk factors for Barretts esophagus being >50 years, white, nighttime refulx, and tobacco abuse. -continue Pantoprazole 40mg daily. 5.)Constipation-will start doc and senna for pt. 6.)Stomatitis- Pt complains of oral ulcers and burning with eating. No obvious ulcers seen. HSV -1 and HSV-2 antibodies positive. No signs of herpetic lesions. Will continue triamcinolone oral paste. 7.)Hx of esophageal strictures- -GI consult, follow-up on recs 8.)Hx of tobacco abuse-nicotine patch, [place] on cessation 9.)Lupus-pt reports hx but is not on any medications. 10.) Meth abuse-denied use Dispo: pending results of EGD and colonoscopy. Okay to ri today with close follow-up <Sandra Dangelo - Last Filed: 11/15/17 09:03> (1) Symptomatic anemia Code(s): D64.9 - ANEMIA, UNSPECIFIED Status: Acute (2) Dysphagia Code(s): R13.10 - DYSPHAGIA, UNSPECIFIED Status: Acute (3) ELI (acute kidney injury) Code(s): N17.9 - ACUTE KIDNEY FAILURE, UNSPECIFIED Status: Acute (4) Odynophagia Code(s): R13.10 - DYSPHAGIA, UNSPECIFIED Status: Acute (5) History of esophageal stricture Code(s): Z87.19 - PERSONAL HISTORY OF OTHER DISEASES OF THE DIGESTIVE SYSTEM Status: Acute (6) GERD (gastroesophageal reflux disease) Code(s): K21.9 - GASTRO-ESOPHAGEAL REFLUX DISEASE WITHOUT ESOPHAGITIS Status: Acute (7) Hx of gastric bypass Code(s): Z98.84 - BARIATRIC SURGERY STATUS Status: Acute (8) Family history of heart attack Code(s): Z82.49 - FAMILY HX OF ISCHEM HEART DIS AND OTH DIS OF THE CIRC SYS Status: Acute (9) Tobacco abuse Code(s): Z72.0 - TOBACCO USE Status: Acute <Sera Currie - Last Filed: 11/15/17 12:45> Attending Addendum - Attending Addendum Date/Time: 11/15/17 1860 I personally evaluated the patient and discussed the management with Dr. Dangelo. I agree with the History, Examination, Assessment and Plan documented above with any addition or exceptions noted below. Patient is feeling better. Tolerating PO. Will d/c home and follow-up with myself next week. <Sera Currie - Last Filed: 11/15/17 12:45>
[2017-11-15] MEDS: Sodium Chloride 0.9% 1,000 ML IV SCH (08:19)
[2017-11-15] MEDS: Ferrous Sulfate 325 MG TAB PO SCH (08:19)
[2017-11-15 08:20] VITALS: BP 161/94
[2017-11-15] MEDS: Docusate 100 MG CAP PO SCH (08:20)
[2017-11-15] MEDS: Nicotine 14 MG PATCH TD SCH (08:20)
[2017-11-15 08:38] VITALS: TEMP 96.1
[2017-11-15] MEDS ORDERED: Lisinopril 10 MG TAB PO SCH (09:00)
[2017-11-15] MEDS ORDERED: Triamcinolone 0.1% Dental Paste 5 GM TUBE PO SCH (12:00)
== END 2017-11-15 12:12 | disposition home or self-care (01) | DRG 812 ==
LOC: 2NO 10:47
PROVIDERS: ADMIT Family Medicine; ATTEND Family Medicine
PROC: 30233N1 Transfusion of Nonautologous Red Blood Cells into Peripheral Vein, Percutaneous Approach (ICD-10-PCS; 2017-11-12)
PROC: 0DB68ZX Excision of Stomach, Via Natural or Artificial Opening Endoscopic, Diagnostic (ICD-10-PCS; principal; 2017-11-13)
DX: D50.9 Iron deficiency anemia, unspecified (principal); N17.9 Acute kidney failure, unspecified; K25.9 Gastric ulcer, unspecified as acute or chronic, without hemorrhage or perforation; Z98.84 Bariatric surgery status; K21.9 Gastro-esophageal reflux disease without esophagitis; R13.10 Dysphagia, unspecified; K21.0 Gastro-esophageal reflux disease with esophagitis; K59.00 Constipation, unspecified; K12.1 Other forms of stomatitis; F17.210 Nicotine dependence, cigarettes, uncomplicated; Z79.1 Long term (current) use of non-steroidal anti-inflammatories (NSAID); Z90.49 Acquired absence of other specified parts of digestive tract; Z90.710 Acquired absence of both cervix and uterus; Z87.442 Personal history of urinary calculi
CPT/HCPCS: 36415; 36430; 71046; 80048; 80053; 80306; 82607; 82728; 82747; 83010; 83550; 83735; 84100; 84443; 85025; 85046; 85060; 86850; 86900; 86901; 87389; 88305; 88312; J2704; J2916; J7050; P9016; Q0162

== ENCOUNTER 2018-09-04 14:59 | Inpatient (IN) | payer OTHER ==
[~2018-09-04 14:59] MED LIST: EPINEPHrine 1 MG/10 ML Abboject SYRINGE ONE; ISOVUE-370 76%-LOCM 1 ML ONE; PROPOFOL 200 MG/20 ML VIAL ONE
[2018-09-04 15:49] LABS: #Eosinphils 0.1 thou/uL (0.0-0.7); #Lymphocytes 2.6 thou/uL (1.20-3.40); #Monocytes 0.4 thou/uL (0.11-0.59); #Neutrophils 5.7 thou/uL (1.40-6.50); %Basophils 0.5 % (0.0-1.0); %Eosinophils 0.6 % (0.0-10.0); %Monocytes 4.9 % (0.0-10.0); Hemoglobin 6.4 g/dL (12.0-16.0); Mean Corpuscular HGB CONC 31.4 g/dL (32.0-36.0); Mean Corpuscular Hemoglobin 24.8 pg (27.0-31.0); Mean Corpuscular Volume 79.1 fL (78.0-98.0); Mean Platelet Volume 8.1 fL (7.4-10.4); Platelet Count 243 thou/uL (130-400); RBC Distribution Width 15.7 % (11.5-14.5); Red Blood Cell (RBC) Count 2.56 mill/uL (4.20-5.40); White Blood Cell (WBC) Count 8.8 thou/uL (4.8-10.8)
[2018-09-04 15:55] LABS: INR-International Normal Ratio 1.1; PTT 29.7 SEC (22.9-36.1); Prothrombin Time 14.6 SEC (12.0-14.7)
[2018-09-04] MEDS ORDERED: Pantoprazole 40 MG VIAL ONE (16:00)
[2018-09-04 16:07] LABS: ALT (SGPT) 11 U/L (8-55); AST (SGOT) 14 U/L (5-34); Albumin 3.6 g/dL (3.5-5.0); Alkaline Phosphatase 68 U/L (40-150); Anion Gap 12 mmol/L (10-20); BUN (Urea Nitrogen) 34 mg/dL (9.8-20.1); Bilirubin, Total 0.4 mg/dL (0.2-1.2); Calc. Creatinine Clearance 0 mL/min (70-130); Calcium 8.8 mg/dL (7.8-10.44); Carbon Dioxide 24 mmol/L (22-29); Chloride 108 mmol/L (98-107); Estimated GFR-MDRD 71; Globulin 1.7 g/dL (2.4-3.5); Glucose 131 mg/dL (70-105); Potassium 3.9 mmol/L (3.5-5.1); Protein, Total 5.3 g/dL (6.0-8.3); Sodium 140 mmol/L (136-145)
[2018-09-04] MEDS ORDERED: Octreotide Acetate 1,250 MCG in Sodium Chloride 0.9% 250 ML 250 ML IVPB SCH (16:15)
--- NOTE | 2018-09-04 18:15 | CT ---
ABDOMEN CT WITH CONTRAST PELVIC CT WITH CONTRAST 09/04/18 COMPARISON: 09/26/15. HISTORY: Gastric bypass. Sudden onset rectal bleeding. FINDINGS: Lung bases are clear. Normal heart sizes. The descending thoracic aorta and abdominal aorta have a no rmal caliber. NO periaortic fat stranding. Portal vein is patent. Minimal central periportal edema. No abnormal enhancing masses in the liver. T he spleen, pancreas, and adrenal glands have appropriate enhancement. No gastrohepatic, retrocrural or periportal lymphadenopathy. Symmetric enhancement of the kidneys. There is scarring in the mid to lower pole of the left kidney. Bilaterally, no obstructive uropathy. Decreased intra-abdominal fat limits evaluation for inflammatory change. NO mesenteric mass, lymphade nopathy, free air or free fluid. Nonspecific mild splenic varices may be present. Limited evaluation of the alimentary canal by the lack of oral contrast. Bariatric changes are noted. Multiple normal caliber small bowel loops. No evidence of small bowel distention or dilatation. Ther e is nonspecific fecalization of multiple segments of small bowel. Partial obstructive process or dev eloping ileus cannot be excluded. Continued surveillance is recommended. Ileocecal junction is normal . Appendix is not appreciated. No inflammation at the cecal apex. Scattered fecal material in a nondi stended, nondilated colon. CT PELVIS: No mass, lymphadenopathy, free air or free fluid. No lytic or blastic lesions in the osseous structures. IMPRESSION: Postsurgical changes compatible with bariatric surgery. No evidence of high grade small bowel obstruc tion. However, there is fecalization of multiple segments of small bowel loops which may represent an early or partial obstructive process versus a developing ileus. Continued surveillance is recommende d. POS: [facility]
[2018-09-04] MEDS ORDERED: Nicotine 14 MG PATCH TOP SCH (19:00)
--- NOTE | 2018-09-04 19:08 | PDOC.FPRHP ---
- History of Present Illness Chief Complaint: bloody stools History of Present Illness: 58yo F with pmh of gastric bypass 12 years ago presents with complaint of Dark red/purple BMs since last night, pt has had 5 BMs since then that have all been that color, BP at the time was 92/64. Also reports intermittent and alternating diarrhea and constipation. Associated light headedness but denies extensive ROS. Pt reports this is the first time she has had a GI bleed. Pt also reports episode of syncope where she had prodrome with tunnel vision, made it to the bed and then came to. She does report to take aleve PM every night. Denies nausea/vomiting. Pt was hospitalized last year for anemia had upper and lower scopes and was found to have a upper GI ulcer. ED Course: protonix, octreotide, nicotine patch - Allergies/Adverse Reactions Allergies Allergy/AdvReac Type Severity Reaction Status Date / Time Tetracyclines Allergy Verified 09/04/18 22:47 - Home Medications Medication Instructions Recorded Confirmed Type Pantoprazole Sodium 40 mg PO DAILY 11/12/17 11/12/17 History Triamcinolone Acetonide 1 applic PO Q6HR 11/12/17 11/12/17 History [Triamcinolone Acet 0.1% Dental Paste] Ferrous Sulfate [Feosol] 325 mg PO BID-WM #60 tab 11/15/17 Rx Lisinopril [Zestril] 10 mg PO DAILY #30 tab 11/15/17 Rx - History PMHx: HTN, anemia (from malabsorption), "heart issue", upper GI ulcer PSHx: Gastric bypass (2006), hysterectomy, appendectomy, tonsilectomy, knee surgery FHx: Cancer, CAD Social: Social etoh, 30 py smoking, takes a "energy pill" that is an illegal drug meds: does not have list, unable to name them - Review of Systems General: reports: fatigue, other (light headed). denies: fever/chills Eyes: denies: eye pain, vision changes ENT: denies: nasal congestion, rhinorrhea Respiratory: denies: cough, congestion Cardiovascular: denies: chest pain, palpitation Gastrointestinal: reports: diarrhea, constipation, GI bleeding. denies: nausea , vomiting Skin: denies: rashes, lesions Musculoskeletal: denies: pain, tenderness Neurological: reports: syncope. denies: seizure Psychological: denies: anxiety, depression - Vital signs BP: 133/74, Pulse: 91 (105 on presentation), Resp: 16, Temp: 99.3 (Oral), Pain: 0, O2 sat: 99 on Room Air, Time: 09/04/2018 18:40 weight: 53kg - Physical Exam Constitutional: NAD, awake, alert and oriented HEENT: EOMI, grossly normal vision, grossly normal hearing Neck: supple, trachea midline Chest: no-tender to palpation Heart: RRR, normal S1/S2 Lungs: CTAB, no respiratory distress Abdomen: soft, bowel sounds present, no hernias, other (mild-moderate ttp of R U and L quadrant, no guarding.) Musculoskeletal: normal structure, normal tone Neurological: no focal deficit, normal sensation Skin: no rash/lesions, good turgor Heme/Lymphatic: no unusual bruising or bleeding, no purpura Psychiatric: normal mood and affect, intact recent and remote memory FMR H&P: Results - Labs Result Diagrams: 09/04/18 15:17 09/04/18 15:17 Lab results: WBC 8.8 thou/uL (4.8-10.8) 09/04/18 15:17 Hgb 6.4 g/dL (12.0-16.0) L 09/04/18 15:17 Hct 20.2 % (36.0-47.0) L 09/04/18 15:17 MCV 79.1 fL (78.0-98.0) 09/04/18 15:17 Plt Count 243 thou/uL (130-400) 09/04/18 15:17 Neutrophils % 65.0 % (42.0-75.0) 09/04/18 15:17 Sodium 140 mmol/L (136-145) 09/04/18 15:17 Potassium 3.9 mmol/L (3.5-5.1) 09/04/18 15:17 Chloride 108 mmol/L (98-107) H 09/04/18 15:17 Carbon Dioxide 24 mmol/L (22-29) 09/04/18 15:17 BUN 34 mg/dL (9.8-20.1) H 09/04/18 15:17 Creatinine 0.83 mg/dL (0.6-1.1) 09/04/18 15:17 Glucose 131 mg/dL (70-105) H 09/04/18 15:17 Calcium 8.8 mg/dL (7.8-10.44) 09/04/18 15:17 Total Bilirubin 0.4 mg/dL (0.2-1.2) 09/04/18 15:17 AST 14 U/L (5-34) 09/04/18 15:17 ALT 11 U/L (8-55) 09/04/18 15:17 Alkaline Phosphatase 68 U/L (40-150) 09/04/18 15:17 Serum Total Protein 5.3 g/dL (6.0-8.3) L 09/04/18 15:17 Albumin 3.6 g/dL (3.5-5.0) 09/04/18 15:17 FMR H&P: A/P - Problem List (1) GI bleed Current Visit: Yes Status: Acute Code(s): K92.2 - GASTROINTESTINAL HEMORRHAGE, UNSPECIFIED (2) Insomnia Current Visit: Yes Status: Acute Code(s): G47.00 - INSOMNIA, UNSPECIFIED (3) HTN (hypertension) Current Visit: Yes Status: Acute Code(s): I10 - ESSENTIAL (PRIMARY) HYPERTENSION (4) Hx of gastric bypass Current Visit: No Status: Acute Code(s): Z98.84 - BARIATRIC SURGERY STATUS (5) Symptomatic anemia Current Visit: No Status: Acute Code(s): D64.9 - ANEMIA, UNSPECIFIED - Plan normocytic anemia 2/2 GIB A- Pt has hx of upper GI ulcer and anemia 2/2 GIB and 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 BUN/Cr ratio > 20 so UGIB from ulcer seems more likely. Hgb 6.4 on presentation, orders in for 2u PRBC. Abdominal CT shows small bowel fecalization. GI consulted, recs/mgmt are greatly appreciated. P- pt going for upper endoscopy per GI recs - continue protonix - check H/H after 2u prbcs and AM run - NPO HTN - will look in clinic EMR for medications Insomnia - continue home trazodone Drug abuse A- pt reports taking "energy pills" P- UDS, serum DS CODE: full FMR H&P: Upper Level - Pertinent history RF is a 58 year old female who presents to the ED with history of several episodes bright red blood per rectum. Associated with lightheadness and near syncope. No abdominal pain, nausea, vomiting. Pt was admitted last year due to symptomatic anemia and odynophagia/dysphagia. Normal colonoscopy last year. EGD showed an anastamotic gastric ulcer that was biopsied and negative for dysplasia or infection. Typed and screened and in the process of receiving 2 units of PRBCs. Started on octreotide gtt and given IV protonix in ED. - Pertinent findings Vitals significant for mild tachycardia with pulse in low 100s. Otherwise normal. Exam: General: alert and oriented x 3; anxious appearing. Heart: mild tachycardia; regular rhythm, no murmurs, rubs or gallops. Lungs: clear to auscultation bilaterally; no crackles, wheezes, or rales. Abdomen: soft, mild RLQ TTP; no guarding or rebound tenderness. CT abdomen: no evidence of obstruction; possible developing ileus. - Plan Date/Time: 09/04/18 [id number] I, Candy Gomez, have evaluated this patient and agree with findings/plan as outlined by internet ecommerce specialist resident. Pertinent changes/additions are listed here. Symptomatic anemia - s/p 2 units PRBCs. - will recheck H/H to monitor for response. Upper GI bleed - GI consulted from ED. Dr. Meier plans for endoscopy tonight. Pt NPO pending procedure. GI recs appreciated. - Continue Protonix. Regarding pt's chronic medical problems, will restart home medications as described above. DVT proph: SCDs. Code status: Full. Addendum - Attending - Attending Attestation Date/Time: 09/04/18 7423 I personally evaluated the patient and discussed the management with Dr. Arshad /Patricia. I agree with the History, Examination, Assessment and Plan documented above with any addition or exceptions noted below. Patient with history of previous gastric bypass surgery and PUD p/w dark/tarry BM x 5 episodes. Denies major pain. Has been taking NSIADs. Abdomen is moderate TTP at this time as she is recently back from EGD. Labs show H&H of 6.4 and she is now s/p 2 units PRBCs. Vitals overall stable. EGD shows bleeding ulcer at anastomosis site (similar to previous) with active bleeding s/p cautery and epinephrine. She has been transferred to the [facility] due to risk of rebleeding. Continue tele monitoring, trend H/H to keep above 7/21, monitor for s/sx of rebleeding and or unstable vitals. Continue Protonix drip for clot stabilization. Further mgmt per GI recs and pending clinical course.
[2018-09-04 19:14] LABS: Bilirubin Negative (Negative); Blood, Urine Negative (Negative); Clarity CLEAR (Clear); Glucose, Urine (Dipstick) Negative (Negative); Leukocyte Negative (Negative); Nitrite Negative (Negative); Protein, Urine (Dipstick) Negative (Neg-Trace); Urobilinogen 0.2 mg/dL (0.2-1.0)
[2018-09-04 19:19] LABS: Specific Gravity, Urine 1.043 (1.002-1.036)
[2018-09-04] MEDS ORDERED: Sodium Chloride 0.9% 20 ML ONE (20:09)
[2018-09-04 20:17] LABS: Amphetamine Detected (NotDetected); Barbiturates Screen Not Detected (NotDetected); Benzodiazepine Screen Not Detected (NotDetected); Cocaine Metabolite Screen Not Detected (NotDetected); Medtox Control Line Valid? VALID (VALID); Medtox Reader # READER 1; Methadone Not Detected (NotDetected); Methamphetamine Detected (NotDetected); Opiate Screen Not Detected (NotDetected); Oxycodone Screen Not Detected (NotDetected); Phencyclidine (PCP) Not Detected (NotDetected); THC/Cannabinoid Screen Not Detected (NotDetected); Tricyclic Screen Not Detected (NotDetected)
[2018-09-04 20:23] LABS: Acetaminophen Less than 6.0 mcg/mL (10.0-30.0); Alcohol Less than 10 mg/dL (Less than 10); Salicylate Less than 8.0 mg/dL (15.0-30.0)
[2018-09-04] MEDS ORDERED: Ondansetron PF 4 MG/2 ML Vial IVP PRN (21:29)
[2018-09-04] MEDS ORDERED: Promethazine HCl 25 MG/ML VIAL IM PRN (21:34)
[2018-09-04] MEDS ORDERED: Promethazine HCl 25 MG/ML VIAL SLOW IVP PRN (21:34)
[2018-09-04] MEDS ORDERED: Ondansetron HCl/PF 4 MG/2 ML Vial IVP PRN (21:34)
[2018-09-04] MEDS ORDERED: Meperidine HCl/PF 25 MG/ML VIAL SLOW IVP PRN (21:34)
[2018-09-04] MEDS ORDERED: Fentanyl 100 MCG/2 ML VIAL ONE (21:35)
[2018-09-04] MEDS ORDERED: Pantoprazole 80 MG in Sodium Chloride 0.9% 100 ML IVP SCH (21:42)
[2018-09-04 22:30] VITALS: BMI 20.8
[2018-09-04] MEDS: Pantoprazole 80 MG, Admixture Fee 1 EACH in Sodium Chloride 0.9% 100 ML IVPB SCH (22:46)
[2018-09-04] MEDS: Lactated Ringer's 1,000 ML IV SCH (22:46)
[2018-09-04] MEDS: Nicotine 14 MG PATCH TD SCH (22:46)
[2018-09-04 22:47] LABS: Acetaminophen Less than 6.0 mcg/mL (10.0-30.0); Alcohol Less than 10 mg/dL (Less than 10); Salicylate Less than 8.0 mg/dL (15.0-30.0)
[2018-09-04 23:21] LABS: Amphetamine Detected (NotDetected); Barbiturates Screen Not Detected (NotDetected); Benzodiazepine Screen Not Detected (NotDetected); Cocaine Metabolite Screen Not Detected (NotDetected); Medtox Control Line Valid? VALID (VALID); Medtox Reader # READER 1; Methadone Not Detected (NotDetected); Methamphetamine Detected (NotDetected); Opiate Screen Not Detected (NotDetected); Oxycodone Screen Not Detected (NotDetected); Phencyclidine (PCP) Not Detected (NotDetected); THC/Cannabinoid Screen Not Detected (NotDetected); Tricyclic Screen Not Detected (NotDetected)
[2018-09-04] MEDS ORDERED: Fentanyl 100 MCG/2 ML VIAL SLOW IVP SCH (23:45)
--- NOTE | 2018-09-05 01:09 | CON ---
DATE OF CONSULTATION: 09/04/2018 CONSULTING PHYSICIAN: . REASON FOR CONSULTATION: Melena, upper GI bleed. HISTORY OF PRESENT ILLNESS: The patient is a 58-year-old female with past medical history of lupus, nephrolithiasis, PTSD, GERD, and obesity with Naheed-en-Y gastric bypass 12 years ago, presenting with complaints of melena, hematochezia. The patient was in her usual state of health until last evening when she had increased lower abdominal cramping that ultimately resulted in a larger maroon-colored stool. She did not immediately seek healthcare assistance at that time, but opted to go to sleep with plans to visit her doctor probably in the morning. However, that morning she again had a larger maroon-colored stool that "overflow the toilet" and that was associated with increased midchest pain as well as increased lower abdominal cramping. Her lower abdominal cramping was located primarily in the suprapubic region, nonradiating and would reach a severity of approximately 6/10 to 7/10. At the occurrence of the blood, it was difficult to clean, requiring her to reach for a washcloth in order to fully clean herself. Upon interviewing her about potential medications, she does state that she takes a sleep medication every night and had been using Aleve PM on a more regular basis within the recent past. Currently, she denies any nausea, vomiting, fevers, chills, dysphagia, odynophagia, hematemesis, or weight loss. Associated symptoms also include lightheadedness, especially upon positional change. REVIEW OF SYSTEMS: A 10-category review of systems was obtained with all responses negative except for the pertinent positives as listed in HPI. PAST MEDICAL HISTORY: As per HPI. PAST SURGICAL HISTORY: Naheed-en-Y gastric bypass 12 years ago, esophageal stricture dilation 12 years ago, cholecystectomy, appendectomy, hysterectomy. FAMILY HISTORY: Mother diagnosed with hepatocellular carcinoma. Father diagnosed with pancreatic cancer. Brother diagnosed with CML. SOCIAL HISTORY: Denies any alcohol use, but does continue to smoke approximately 1 to 2 packs per day. She also does endorse taking illicit substances including Speed. OUTPATIENT MEDICATIONS: Reviewed. ALLERGIES: TETRACYCLINE. PHYSICAL EXAMINATION: VITAL SIGNS: Pulse 98, blood pressure 149/98, respiratory rate 20, saturating 100% on room air. GENERAL: The patient is lying in bed, in mild distress. Alert and oriented x4. Tearful during the course of the interview due to increased anxiety over her current clinical situation. HEENT: Neck, supple. No JVD or scleral icterus noted. Normocephalic, atraumatic. CARDIOVASCULAR: Tachycardic rate, but regular rhythm with no discernible murmurs, gallops, or rubs. RESPIRATORY: Clear to auscultation bilaterally with no discernible wheezes or rales. ABDOMEN: Hyperactive bowel sounds. Soft, nondistended, mild tenderness to palpation in the midepigastric region only. EXTREMITIES: No cyanosis, clubbing, or edema. LABORATORY DATA: CBC with a white blood cell count of 8.8, hemoglobin 6.4, hematocrit 20.2, platelets 243. INR 1.1. Chemistry with a sodium of 140, potassium 3.9, chloride 108, CO2 of 24, BUN 34, creatinine 0.83, glucose 131, AST 14, ALT 11, alkaline phosphatase 68, total bilirubin 0.4. CT of the abdomen and pelvis was obtained on September 04, 2018, which showed fecalization of the small bowel concerning for an obstructive process versus possible ileus, but no other abnormality seen during that examination. Upon chart review, she had an EGD and colonoscopy performed on November 13, 2017. With the EGD, she had a large anastomotic ulcer seen at the gastrojejunal anastomosis with no evidence of high-risk stigmata of bleeding and no intervention was taken at that time. Biopsies were taken of the ulceration and did not exhibit any evidence of H pylori or malignancy. Colonoscopy performed on the same day was normal with no abnormality seen. ASSESSMENT AND PLAN: The patient is a 58-year-old female with past medical history of lupus, nephrolithiasis, posttraumatic stress disorder, gastroesophageal reflux disease, and illicit drug abuse, presenting with melena. Melena: The patient is presenting with a recent history of a large maroon-colored bowel movement yesterday and a large maroon-colored bowel movement earlier today that required increased wiping/cleaning in order to fully clean herself afterward. She also has associated increased lower abdominal cramping in association with these maroon-colored stools as well as lightheadedness and mid chest pain as well. Upon admission to the [facility], she was noted to have a significantly decreased H and H as well as an elevated BUN to creatinine ratio, which is concerning for an upper GI bleed. Given her history in November 2017 of a large anastomotic ulcer and her recent history of frequent use of NSAIDs, the bleeding from this particular site is more likely. Differential could also include arteriovenous malformation, Dieulafoy lesion, peptic ulcer disease at a different site, esophagitis, gastritis, and/or GI neoplasm (much less likely). RECOMMENDATIONS: 1. We would continue to trend H and H and transfuse as necessary to maintain an H and H of 7/. 2. Continue to monitor clinically for signs of active GI bleeding. 3. We would maintain n.p.o. status in anticipation for EGD later on tonight. 4. We would place the patient on a PPI drip given the higher likelihood of anastomotic ulceration. 5. Given the low likelihood of possible cirrhosis, an octreotide drip is probably not needed. 6. Further recommendations to follow EGD. We will continue to follow. Please call with any questions. Job ID: [id number]
--- NOTE | 2018-09-05 02:33 | OP ---
DATE OF PROCEDURE: 09/04/2018 INDICATION FOR PROCEDURE: Melena, upper gastrointestinal bleeding. PROCEDURE PERFORMED: Esophagogastroduodenoscopy with control of hemorrhage. DESCRIPTION OF PROCEDURE: After the risks and benefits of the procedure were explained to the patient including risks of bleeding, infection, perforation, reactions to anesthesia, aspiration and/or pain, informed consent was obtained. The patient was then taken to the endoscopy suite where deep sedation was administered via propofol and anesthesia support. Once adequate sedation was achieved, the therapeutic endoscope was introduced into the mouth with intubation of the esophagus, stomach and proximal small intestines with the findings listed below. The patient tolerated the procedure well with no immediate perioperative complications. Upon conclusion of the procedure, all equipment was removed from the patient and she was transferred to PACU in satisfactory condition. FINDINGS: Esophagus: Normal-appearing mucosa was seen in the proximal, mid, and distal esophagus. An irregular Z-line was seen at the GE junction with extension of a salmon-colored tongue proximally into the distal esophagus, but did not measure more than 1 cm in length. Otherwise, there was no evidence of erosions, ulcerations, mass, lesions, or active/recent bleeding. Stomach: Surgical change consistent with a Naheed-en-Y gastric bypass was seen upon entry into the stomach. The gastric pouch itself was not large with easy identification of the gastrojejunal anastomosis. Along the posterior aspect of the gastrojejunal anastomosis was a 1.5-cm ulceration with a red spot and visible vessel present along the superior aspect of the ulceration. Upon manipulation with the scope, the visible vessel then exhibited active spurting of blood. This bleeding was slowed with the submucosal injection of epinephrine in a 4-quadrant fashion around the visible vessel. Once adequate visualization was able to be achieved, using a 10-[place] bipolar cautery probe, cauterization of the visible vessel was performed with good hemostasis achieved. Around the ulceration site, other areas were seen to be actively oozing blood in which case they were touched up with a bipolar cautery as well with no bleeding noted at the end of the procedure. Otherwise, no mass, lesions, or malignancy was seen during this portion of the exam. No biopsies were taken from the ulceration itself due to the active bleeding seen during this examination. Duodenum: Both the efferent and afferent limbs of the Naheed-en-Y gastric bypass were identified with normal-appearing mucosa seen in both the efferent and afferent limbs. There was no evidence of erosions, ulcerations, mass, lesions, or active/recent bleeding seen in either limb. IMPRESSION: 1. A 1.5-cm ulceration seen at the gastrojejunal anastomosis exhibiting high- risk stigmata in the form of an actively bleeding visible vessel with good hemostasis achieved with submucosal epinephrine injection and bipolar cautery. 2. Surgical change consistent with a Naheed-en-Y gastric bypass. 3. Possible Laguna's mucosal changes seen in the distal esophagus, but less than 1 cm and does not need further followup. RECOMMENDATIONS: 1. We would continue to trend H and H and transfuse as necessary to maintain an H and H of 7/21. 2. Continue to monitor clinically for signs of active GI bleeding. 3. We would discontinue the octreotide drip given that this is not an esophageal varix bleed. 4. We would continue PPI drip for the next 24 hours, then consider transferring the patient to PPI 40 b.i.d. administration. 5. We will continue n.p.o. status for now in light of possible rebleeding from the site. 6. The patient will need to be closely monitored for the next 48 hours given increased risk of rebleeding from the site. This would be best accomplished in an intermediate care bed. 7. We will place the patient on resuscitative fluids while on n.p.o. status. We will continue to follow. Please call with any questions. Job ID: [id number] MTDD
[2018-09-05 02:48] LABS: #Basophils 0.1 thou/uL (0.0-0.2); #Lymphocytes 1.9 thou/uL (1.20-3.40); #Monocytes 0.4 thou/uL (0.11-0.59); #Neutrophils 6.6 thou/uL (1.40-6.50); %Basophils 0.6 % (0.0-1.0); %Eosinophils 0.2 % (0.0-10.0); %Lymphocytes 21.3 % (21.0-51.0); %Monocytes 4.2 % (0.0-10.0); %Neutrophils 73.7 % (42.0-75.0); Hemoglobin 7.7 g/dL (12.0-16.0); Mean Corpuscular HGB CONC 33.4 g/dL (32.0-36.0); Mean Corpuscular Hemoglobin 27.2 pg (27.0-31.0); Mean Corpuscular Volume 81.3 fL (78.0-98.0); Mean Platelet Volume 7.8 fL (7.4-10.4); Platelet Count 201 thou/uL (130-400); Red Blood Cell (RBC) Count 2.84 mill/uL (4.20-5.40); White Blood Cell (WBC) Count 8.9 thou/uL (4.8-10.8)
[2018-09-05] MEDS: Lactated Ringer's 1,000 ML IV SCH ×2 (05:14→15:25)
[2018-09-05 05:18] LABS: #Lymphocytes 2.4 thou/uL (1.20-3.40); #Monocytes 0.5 thou/uL (0.11-0.59); #Neutrophils 5.7 thou/uL (1.40-6.50); %Basophils 0.5 % (0.0-1.0); %Eosinophils 0.4 % (0.0-10.0); %Lymphocytes 27.8 % (21.0-51.0); %Monocytes 6.1 % (0.0-10.0); %Neutrophils 65.2 % (42.0-75.0); Hemoglobin 7.2 g/dL (12.0-16.0); Mean Corpuscular HGB CONC 33.3 g/dL (32.0-36.0); Mean Corpuscular Hemoglobin 27.9 pg (27.0-31.0); Mean Corpuscular Volume 83.7 fL (78.0-98.0); Mean Platelet Volume 8.1 fL (7.4-10.4); Platelet Count 187 thou/uL (130-400); RBC Distribution Width 16.8 % (11.5-14.5); Red Blood Cell (RBC) Count 2.59 mill/uL (4.20-5.40); White Blood Cell (WBC) Count 8.7 thou/uL (4.8-10.8)
[2018-09-05 05:43] LABS: Anion Gap 8 mmol/L (10-20); BUN (Urea Nitrogen) 29 mg/dL (9.8-20.1); Calc. Creatinine Clearance 73 mL/min (70-130); Calcium 8.4 mg/dL (7.8-10.44); Carbon Dioxide 26 mmol/L (22-29); Chloride 108 mmol/L (98-107); Estimated GFR-MDRD 81; Glucose 110 mg/dL (70-105); Potassium 4.3 mmol/L (3.5-5.1); Sodium 138 mmol/L (136-145)
--- NOTE | 2018-09-05 07:06 | PDOC.FM ---
- Subjective Subjective: Pt denies any further bloody stools overnight. She states that she has been passing gas. She reports that her abdominal pain is much improved this morning. She denies lightheadedness or dizziness at rest. She denies chest pain, SOB, nausea, or vomiting. - Objective MAR Reviewed: Yes Vital Signs & Weight: Vital Signs (12 hours) Temp Pulse Ox 09/05/18 04:00 98.3 F 09/04/18 23:08 99 09/04/18 22:29 97.6 F Weight Weight 55.066 kg Most Recent Monitor Data Heart Rate from ECG 80 NIBP 188/110 NIBP BP-Mean 136 Respiration from ECG 15 SpO2 98 I&O: 09/04/18 09/05/18 09/06/18 06:59 06:59 06:59 Intake Total 1200 Output Total 2100 Balance -900 Result Diagrams: 09/05/18 11:34 09/05/18 04:52 Phys Exam - Physical Examination Dry mucus membranes, poor dental hygiene Neck: supple, full ROM Respiratory: no wheezing, no rales, clear to auscultation bilateral Cardiovascular: RRR, no significant murmur, no rub Gastrointestinal: soft, no distention, positive bowel sounds Mild ttp of LUQ Musculoskeletal: no edema, pulses present Neurological: normal sensation, moves all 4 limbs Psychiatric: normal affect, A&O x 3 Skin: cap refill <2 seconds Dx/Plan (1) Methamphetamine abuse Code(s): F15.10 - OTHER STIMULANT ABUSE, UNCOMPLICATED Status: Acute (2) GI bleed Code(s): K92.2 - GASTROINTESTINAL HEMORRHAGE, UNSPECIFIED Status: Acute (3) HTN (hypertension) Code(s): I10 - ESSENTIAL (PRIMARY) HYPERTENSION Status: Acute (4) Insomnia Code(s): G47.00 - INSOMNIA, UNSPECIFIED Status: Acute - Plan Plan: This is a 58 yo female with a pmh of HTN, insomnia, and methamphetamine abuse Normocytic anemia 2/2 upper GI bleed -Dr. Meier, GI was consulted, we will appreciate there recommendations -S/P EGD shows 1.5 cm bleeding ulcer with hemostasis s/p epinephrine injection and electric cautery -Appears to be hemodynamically stable, repeat H/H at 12:00 Insomnia -Continue trazedone HTN - Drug abuse -Methamphetamine use for "energy" -Large amounts of energy drinks Addendum - Attending - Attending Attestation Date/Time: 09/05/181949 I personally evaluated the patient and discussed the management with Dr. Mcgovern I agree with the History, Examination, Assessment and Plan documented above with any addition or exceptions noted below.
[2018-09-05] MEDS: Pantoprazole 80 MG, Admixture Fee 1 EACH in Sodium Chloride 0.9% 100 ML IVPB SCH (07:56)
[2018-09-05 11:41] LABS: Hemoglobin 8.1 g/dL (12.0-16.0); Mean Corpuscular HGB CONC 32.1 g/dL (32.0-36.0); Mean Corpuscular Hemoglobin 27.5 pg (27.0-31.0); Mean Corpuscular Volume 85.6 fL (78.0-98.0); Mean Platelet Volume 8.1 fL (7.4-10.4); Platelet Count 210 thou/uL (130-400); RBC Distribution Width 16.8 % (11.5-14.5); Red Blood Cell (RBC) Count 2.95 mill/uL (4.20-5.40); White Blood Cell (WBC) Count 11.4 thou/uL (4.8-10.8)
[2018-09-05] MEDS ORDERED: Lisinopril 10 MG TAB PO SCH (13:15)
--- NOTE | 2018-09-05 18:04 | CON ---
DATE OF CONSULTATION: 09/05/2018 SERVICE: Pulmonary Medicine. REASON FOR CONSULT: ICU patient. HISTORY OF PRESENT ILLNESS: The patient is a 58-year-old white female with past medical history significant for gastric bypass surgery and excessive naproxen use. She presented to the hospital after 3 days of having melenotic stools. She presented to the emergency department. Hemoglobin was quite low. She was symptomatic with dizziness and weakness. She was given 2 units of blood and made an appropriate rise. An EGD was performed demonstrating a large ulcer at the junction between her trisha-stomach and jejunum. There was no active bleeding present, but it was cauterized. GI would like for her to stay in the IMCU under close observation for a period of roughly 2 days. She has no specific complaints of nausea or vomiting. She actually has an appetite that is coming back. She was in her usual state of health prior to this occurring. Denies any sick contacts, fevers, chills, cough, sputum production, nausea, or vomiting. PAST MEDICAL HISTORY: 1. Hypertension. 2. Anemia. 3. Peptic ulcer disease. PAST SURGICAL HISTORY: 1. Gastric bypass surgery in 2006. 2. Hysterectomy. 3. Appendectomy. 4. Tonsillectomy. 5. Knee surgery. FAMILY HISTORY: Noncontributory. SOCIAL HISTORY: She drinks alcohol socially. She uses illicit drugs. She has a [id number] history of smoking and continues to smoke about a half pack to a pack on a daily basis. She has no exposure to chemicals, dust, asbestos, or tuberculosis. ALLERGIES: TETRACYCLINE. MEDICATIONS: List of her inpatient medications was reviewed. No specific updates were made at this time. REVIEW OF SYSTEMS: General; head, ears, eyes, nose, and throat; cardiovascular; respiratory; GI; ; musculoskeletal; neurologic; and skin are negative except as mentioned in the HPI. PHYSICAL EXAMINATION: VITAL SIGNS: Afebrile, pulse 77, blood pressure 162/92, respirations 17, saturation 99% on room air. GENERAL: The patient is awake and alert, in no apparent distress. LUNGS: Decent air entry with no prolonged expiratory phase or wheezing present. HEART: Normal rate, regular. ABDOMEN: Soft, nontender, and nondistended. Bowel sounds are positive. MUSCULOSKELETAL: No cyanosis or clubbing. No pitting in the bilateral lower extremities. NEUROLOGIC: Grossly nonfocal. LABORATORY DATA: WBC 11.4, hemoglobin 8.1 (appropriate rise following 6.4 hemoglobin in 2 units of blood), platelets 210. INR 1.1, BUN 29. Basic metabolic profile and liver function studies are otherwise unremarkable. Urinalysis is unremarkable. Urine drug screen is positive for amphetamines and methamphetamines. Otherwise, it is unremarkable. Salicylate, acetaminophen, and alcohol are negative. IMAGING: CT of the abdomen and pelvis demonstrates no mass, lymphadenopathy, or free air is present. No lytic or blastic lesions are otherwise appreciated. Postsurgical changes are present consistent with bariatric surgery. No obstruction. ASSESSMENT: 1. Peptic ulcer disease status post EGD, high risk for rebleed. 2. Acute blood loss anemia. 3. Polysubstance drug abuse. DISCUSSION AND PLAN: The patient will remain in the ICU. We will trend hemoglobins through time. If these remain stable until tomorrow, she can be considered for transition out of the ICU to the medical unit. In the morning, if she is doing well, PPI will be switched over to twice daily. Pulmonary Critical Care will continue to follow along in this location. 70 minutes have been devoted to this patient in various activities. I personally reviewed all imaging studies and laboratory data noted within this document. For fifty percent of this time, I was interacting with the patient at the bedside or coordinating care with the care team. For the remainder of the time I was immediately available to the patient in the hospital unit. Job ID: [id number] MTDD
[2018-09-05] MEDS: Nicotine 14 MG PATCH TD SCH (20:05)
--- NOTE | 2018-09-05 20:21 | PRG ---
DATE OF SERVICE: 09/05/2018 REASON FOR CONSULTATION: Melena, gastric ulceration with active bleeding. SUBJECTIVE: This morning, per nursing staff and per patient, she did have one episode of a darker black/maroon-colored stool, but this has not since recurred over the course of the day. Currently, she states she is doing well with minimal abdominal aching in the midepigastric region, but otherwise feeling well. She has been able to tolerate a clear liquid diet without any difficulties. Currently, denies any nausea, vomiting, fevers, chills, hematemesis, melena, or hematochezia. OBJECTIVE: VITAL SIGNS: Temperature 97.1, pulse 93, blood pressure 161/83, respiratory rate 17, saturating 99% on room air. GENERAL: The patient was lying in bed, in no acute distress. Alert and oriented x4. CARDIOVASCULAR: Regular rate and rhythm. RESPIRATORY: Clear to auscultation bilaterally. ABDOMEN: Normoactive bowel sounds. Soft, nontender, nondistended. EXTREMITIES: No cyanosis, clubbing, or edema. LABORATORY DATA: CBC with a white blood cell count of 8.7, hemoglobin 7.2, hematocrit 21.7, platelets 187. Chemistry with a sodium of 138, potassium 4.3, chloride 108, CO2 of 26, BUN 29, creatinine 0.74, glucose 110. Drug screen positive for methamphetamines. IMAGING DATA: The patient underwent upper endoscopy on September 04, 2018, which showed a large (1.5 cm) ulceration at the gastrojejunal anastomosis of her Naheed-en-Y gastric bypass. This ulceration exhibited both red spot and a visible vessel that were seen to be actively bleeding upon manipulation. This was subsequently intervened upon with submucosal injection of epinephrine and use of a 10-Swazi bipolar cautery probe with good hemostasis achieved. ASSESSMENT AND PLAN: The patient is a 58-year-old female with past medical history of lupus, nephrolithiasis, posttraumatic stress disorder, gastroesophageal reflux disease, and illicit drug abuse, presenting with melena/gastric ulceration. Melena/gastric ulceration: The patient initially presented with a recent history of large maroon-colored bowel movements the day prior and the day of admission concerning for an upper gastrointestinal bleed. She subsequently underwent an EGD on September 04, 2018, which showed a large ulceration at the gastrojejunal anastomosis of her Naheed-en-Y gastric bypass that exhibited active oozing of blood. This was intervened upon with epinephrine and bipolar cautery with good hemostasis achieved. At this time, she has had no further episodes of melena throughout the day (the previous episode most likely retained blood from the procedure yesterday) and her H and H has remained stable over the last 12 hours. RECOMMENDATIONS: 1. Would continue to trend H and H and transfuse as necessary to maintain an H and H of 7/21. 2. Continue to monitor clinically for signs of active GI bleeding. 3. Would advance diet as tolerated. 4. Would continue the patient on PPI drip until tomorrow and then transfer the patient to PPI 40 mg b.i.d. in anticipation of discharge. 5. Given the higher likelihood of rebleeding in the first 48 hours, I would recommend continue monitoring the patient in an inpatient status; however, if her H and H are stable tomorrow with no further episodes of melena, she could probably be transferred to a regular tripp bed. We will continue to follow. Please call with any questions. Job ID: [id number]
[2018-09-06] MEDS: Lactated Ringer's 1,000 ML IV SCH (01:16)
[2018-09-06] MEDS: Pantoprazole 80 MG, Admixture Fee 1 EACH in Sodium Chloride 0.9% 100 ML IVPB SCH (03:46)
[2018-09-06 05:42] LABS: #Basophils 0.1 thou/uL (0.0-0.2); #Eosinphils 0.1 thou/uL (0.0-0.7); #Lymphocytes 2.4 thou/uL (1.20-3.40); #Monocytes 0.6 thou/uL (0.11-0.59); #Neutrophils 5.6 thou/uL (1.40-6.50); %Basophils 0.8 % (0.0-1.0); %Eosinophils 0.9 % (0.0-10.0); %Lymphocytes 27.1 % (21.0-51.0); %Monocytes 7.1 % (0.0-10.0); %Neutrophils 64.2 % (42.0-75.0); Hemoglobin 7.9 g/dL (12.0-16.0); Mean Corpuscular HGB CONC 32.2 g/dL (32.0-36.0); Mean Corpuscular Volume 86.9 fL (78.0-98.0); Platelet Count 203 thou/uL (130-400); RBC Distribution Width 17.2 % (11.5-14.5); Red Blood Cell (RBC) Count 2.84 mill/uL (4.20-5.40); White Blood Cell (WBC) Count 8.7 thou/uL (4.8-10.8)
[2018-09-06 05:59] LABS: Anion Gap 10 mmol/L (10-20); BUN (Urea Nitrogen) 16 mg/dL (9.8-20.1); Calc. Creatinine Clearance 77 mL/min (70-130); Calcium 8.4 mg/dL (7.8-10.44); Carbon Dioxide 26 mmol/L (22-29); Chloride 108 mmol/L (98-107); Estimated GFR-MDRD 86; Glucose 90 mg/dL (70-105); Potassium 4.2 mmol/L (3.5-5.1); Sodium 140 mmol/L (136-145)
[2018-09-06] MEDS ORDERED: Acetaminophen 325 MG TAB PO SCH (06:00)
--- NOTE | 2018-09-06 07:16 | PDOC.FM ---
- Subjective Subjective: Pt reports improving pain. She is tolerating PO intake. Stools are dark, no blood. She denies dizziness, SOB, or severe fatigue. - Objective MAR Reviewed: Yes Vital Signs & Weight: Vital Signs (12 hours) Temp Pulse Ox 09/06/18 07:02 98.4 F 09/06/18 03:48 98.9 F 09/06/18 00:00 99 F 100 09/05/18 20:00 98.5 F 100 Weight Weight 55.066 kg Most Recent Monitor Data Heart Rate from ECG 90 NIBP 132/86 NIBP BP-Mean 101 Respiration from ECG 14 SpO2 96 I&O: 09/05/18 09/06/18 09/07/18 06:59 06:59 06:59 Intake Total 1200 2680 Output Total 2100 5050 Balance -900 -2370 Result Diagrams: 09/06/18 05:03 09/06/18 05:03 Dx/Plan (1) Methamphetamine abuse Code(s): F15.10 - OTHER STIMULANT ABUSE, UNCOMPLICATED Status: Acute (2) GI bleed Code(s): K92.2 - GASTROINTESTINAL HEMORRHAGE, UNSPECIFIED Status: Acute (3) HTN (hypertension) Code(s): I10 - ESSENTIAL (PRIMARY) HYPERTENSION Status: Acute (4) Insomnia Code(s): G47.00 - INSOMNIA, UNSPECIFIED Status: Acute - Plan Plan: This is a 58 yo female with a pmh of HTN, insomnia, and methamphetamine abuse Normocytic anemia 2/2 upper GI bleed -Dr. Meier, GI was consulted, we will appreciate there recommendations -S/P day 2 EGD shows 1.5 cm bleeding ulcer with hemostasis s/p epinephrine injection and electric cautery -Hgb stable this morning -Changing protonix to oral, advancing to full liquid diet and likely to regular diet at lunch Insomnia -Continue trazedone HTN -Lisinopril Drug abuse -Methamphetamine use for "energy" -Large amounts of energy drinks Addendum - Attending - Attending Attestation Date/Time: 09/06/18 5033 I personally evaluated the patient and discussed the management with Dr. Mcgovern I agree with the History, Examination, Assessment and Plan documented above with any addition or exceptions noted below. VSS tolerating diet continue to advance to regular diet and continue trend H/ H. Patient converted to po PPI. Should be able to d/c after 48 hrs if stable and GI has no further rec for continued observation.
[2018-09-06] MEDS ORDERED: Lisinopril 10 MG TAB PO SCH (09:00)
--- NOTE | 2018-09-06 13:50 | PRG ---
DATE OF SERVICE: 09/06/2018 SERVICE: Pulmonary Medicine. INTERVAL HISTORY: The patient is doing okay from respiratory standpoint. Overnight, there were no bleeding events. Denies any current chest pain, fevers, chills, nausea, or vomiting. Otherwise, she has had a bowel movement. It seems to be clearing a little bit. PHYSICAL EXAMINATION: VITAL SIGNS: Afebrile, pulse 87, blood pressure 125/75, respirations 22, saturation 95% on room air. GENERAL: The patient is awake and alert, in no apparent distress. LUNGS: Excellent air entry with no prolonged expiratory phase or wheezing. HEART: Normal rate and regular. ABDOMEN: Soft, nontender, nondistended. Bowel sounds are positive. MUSCULOSKELETAL: No cyanosis or clubbing. No pitting in the bilateral lower extremities. NEUROLOGICAL: Grossly nonfocal. LABORATORY DATA: Hemoglobin 7.9 and stable. CBC is otherwise unremarkable. INR 1.1. Basic metabolic profile is essentially unremarkable. Creatinine 0.70 and stable. Urine drug screen is positive for amphetamines and methamphetamine. ASSESSMENT: 1. Peptic ulcer disease, status post esophagogastroduodenoscopy. 2. Acute blood loss anemia. 3. Polysubstance drug abuse. DISCUSSION AND PLAN: The patient is stable for transition out of the ICU to the medical unit. When she lands on the floor, she will have no further requirements for inpatient Pulmonary Critical Care opinion, and I will sign off. Please call with additional questions or concerns through time. Job ID: [id number]
--- NOTE | 2018-09-06 14:48 | PRG ---
DATE OF SERVICE: 09/06/2018 REASON FOR CONSULTATION: Melena, gastric ulceration with active bleeding. SUBJECTIVE: The patient states that she is doing well today with no acute events or problems overnight. She has not had any further episodes of melenic type stool, although she did have a smaller clot that she passed in a bowel movement this morning. Otherwise, she is doing well with no nausea, vomiting, fevers, chills, or GI bleeding. OBJECTIVE: VITAL SIGNS: Temperature 98.8, pulse 87, blood pressure 125/75, respiratory rate 22, and saturating 99% on room air. GENERAL: The patient is lying in bed, in no acute distress. Alert and oriented x4. CARDIOVASCULAR: Regular rate and rhythm. RESPIRATORY: Clear to auscultation bilaterally. ABDOMEN: Normoactive bowel sounds. Soft, nontender, and nondistended. EXTREMITIES: No cyanosis, clubbing, or edema. LABORATORY DATA: CBC with a white blood cell count of 8.7, hemoglobin 7.9, hematocrit 24.7, and platelets 203. Chemistry with a sodium of 140, potassium 4.2, chloride 108, CO2 of 26, BUN 16, creatinine 0.07, and glucose 90. IMAGING DATA: No current GI imaging is available for review. ASSESSMENT AND PLAN: The patient is a 58-year-old female with past medical history of lupus, nephrolithiasis, posttraumatic stress disorder, gastroesophageal reflux disease, and illicit drug abuse, presenting with melena/gastric ulceration. Melena/gastric ulceration. The patient initially presented with a recent history of large maroon-colored bowel movements on the day prior and the day of admission concerning for an upper GI bleed. She subsequently underwent an EGD on September 04, 2018, which showed a large ulceration at the gastrojejunal anastomosis of her Naheed-en-Y gastric bypass along with a visible vessel that was actively bleeding. This was intervened upon with epinephrine and bipolar cautery with good hemostasis achieved. Over the last 24 to 48 hours, she has had no further episodes of melena, and her H and H have remained stable. RECOMMENDATIONS: 1. We will continue to trend H and H and transfuse as necessary to maintain H and H of 7/21. 2. Continue to monitor clinically for signs of active GI bleeding. 3. Advance diet as tolerated. 4. We transfer the patient to PPI 40 mg twice daily. 5. The patient can be transferred out of the ICU to a regular bed. However, given her good response to treatment, she could also be considered safe for discharge. At this time, we will sign off. Please call with any additional events, problems, or questions. Job ID: [id number]
[2018-09-06 17:05] LABS: Hemoglobin 7.7 g/dL (12.0-16.0); Mean Corpuscular HGB CONC 32.6 g/dL (32.0-36.0); Mean Corpuscular Hemoglobin 27.5 pg (27.0-31.0); Mean Corpuscular Volume 84.5 fL (78.0-98.0); Mean Platelet Volume 8.3 fL (7.4-10.4); Platelet Count 200 thou/uL (130-400); RBC Distribution Width 17.7 % (11.5-14.5); Red Blood Cell (RBC) Count 2.78 mill/uL (4.20-5.40); White Blood Cell (WBC) Count 9.2 thou/uL (4.8-10.8)
[2018-09-06 18:44] VITALS: BP 135/82; TEMP 98.6
--- NOTE | 2018-09-08 00:49 | DIS ---
DATE OF ADMISSION: 09/04/2018 DATE OF DISCHARGE: 09/06/2018 RESIDENT: Parveen Mcgovern DO. ADMITTING ATTENDING: Jomar Silva MD. DISCHARGE ATTENDING: Dewayne Quiroga MD. CONSULT: Dr. Meier, GI. PROCEDURES: EGD showing a 0.5 cm ulceration with visible vessel bleeding with good hemostasis achieved by submucosal epinephrine injection and bipolar cautery, surgical changes consistent with Naheed-en-Y gastric bypass, possible Laguna's esophagus, less than 1 cm and no need for further followup, CT abdomen and pelvis with contrast showing postsurgical changes compatible with bariatric surgery, no evidence of high-grade small bowel obstruction, some fecalization of multiple segments of small bowel loops which may represent early partial obstructive process versus developing ileus. PRIMARY DIAGNOSIS: Symptomatic anemia, likely secondary to upper GI bleed. SECONDARY DIAGNOSES: Hypertension, insomnia, methamphetamine use. DISCHARGE MEDICATIONS: 1. Protonix 40 mg p.o. b.i.d. 2. Lisinopril 10 mg p.o. daily. 3. Ferrous sulfate 325 mg p.o. b.i.d. 4. Triamcinolone dental paste. DISCONTINUED MEDICATIONS: Any NSAIDs. BRIEF HISTORY OF PRESENT ILLNESS/HOSPITAL COURSE: This is a 58-year-old female with past medical history of gastric bypass and history as above, presented to the ER with 4-5 dark purple/red bowel movements. At that time, blood pressure was 92/64, and hemoglobin was 6.4, hematocrit 20.2. The patient was transfused 2 units and underwent EGD as listed above. The patient was made n.p.o. and gradually tolerated to regular diet. The patient's hemoglobin stayed stable plateauing at 7.7. At the time of discharge, the patient's pain was greatly improved. Abdominal pain was greatly improved and the patient was having no bright red stools or lightening dark stools. DISPOSITION: Stable. DISCHARGE INSTRUCTIONS: 1. Location: Home. 2. Diet: As tolerated. 3. Activity: As tolerated. 4. Follow up with Dr. Sera Currie in 1-2 weeks. Job ID: [id number]
== END 2018-09-06 18:45 | disposition home or self-care (01) | DRG 378 ==
LOC: ERS 14:59 → 2NO 19:57 → IMCU/EMU 21:52 → T4-A 09-06 13:59
PROVIDERS: ADMIT Student in an Organized Health Care Education/Training Program; ATTEND Student in an Organized Health Care Education/Training Program
PROC: 30233N1 Transfusion of Nonautologous Red Blood Cells into Peripheral Vein, Percutaneous Approach (ICD-10-PCS; principal; 2018-09-04)
PROC: 0W3P8ZZ Control Bleeding in Gastrointestinal Tract, Via Natural or Artificial Opening Endoscopic (ICD-10-PCS; 2018-09-04)
DX: K28.4 Chronic or unspecified gastrojejunal ulcer with hemorrhage (principal); K91.2 Postsurgical malabsorption, not elsewhere classified; D62 Acute posthemorrhagic anemia; Z98.84 Bariatric surgery status; I10 Essential (primary) hypertension; G47.00 Insomnia, unspecified; K21.9 Gastro-esophageal reflux disease without esophagitis; F43.10 Post-traumatic stress disorder, unspecified; M32.9 Systemic lupus erythematosus, unspecified; F15.10 Other stimulant abuse, uncomplicated; F17.210 Nicotine dependence, cigarettes, uncomplicated; Z87.11 Personal history of peptic ulcer disease; Z79.1 Long term (current) use of non-steroidal anti-inflammatories (NSAID); Z88.1 Allergy status to other antibiotic agents
CPT/HCPCS: 36415; 36430; 74177; 80048; 80053; 80306; 80307; 81003; 85025; 85610; 85730; 86850; 86900; 86901; 94760; 96365; 96366; 96375; C9113; J2354; J3010; J3490; J7050; P9016; Q9966